=== PATIENT | female | born 1930 | race Caucasian/White ===

== ENCOUNTER 2017-06-18 08:13 | Day surgery (SDC) | payer MEDICARE, OTHER ==
[~2017-06-18 08:13] MED LIST: DIPHENHYDRAMINE HCL 50 MG/ML VIAL ONE; EPINEPHRINE INJ 1 MG/10 ML DISP.SYRIN ONE; FLUMAZENIL INJ 0.5 MG/5 ML VIAL ONE; GLUCAGON,HUMAN RECOMB 1 MG INJ ONE; NALOXONE HCL INJ/PF 0.4 MG/1 ML SDV ONE; ONDANSETRON HCL INJ/PF 4 MG/2 ML SDV ONE
[2017-06-18] MEDS: MIDAZOLAM 2 MG/2 ML INJ ONE ×2 (08:44→08:46)
[2017-06-18] MEDS: FENTANYL CITRATE INJ/PF 100 MCG/2 ML AMPUL ONE ×2 (08:48→08:50)
--- NOTE | 2017-06-18 08:57 | Operative Report ---
Operative Report DATE OF SURGERY: 06/18/17 Operative Report: The risks benefits and alternatives of the procedure explained to the patient in detail and informed consent is obtained .A GIF Olympus video scope was inserted into the patient's mouth and hypopharynx, the esophagus is identified intubated and insufflated, the scope was then advanced through the esophagus stomach and duodenum, retroflexion maneuver is done, the esophagus stomach and first and second portions of the duodenum examined PREOPERATIVE DIAGNOSIS: Dyspepsia, evaluate for varices. POSTOPERATIVE DIAGNOSIS: Absence of esophageal varices. Hiatal hernia. Gastritis status post biopsy rule out H pylori OPERATION: EGD with biopsy SURGEON: HENRY WILKERSON ANESTHESIA: Moderate Sedation - 2 mg of Versed, 25 mcg of fentanyl. Conscious sedation monitoring time 30 minutes. TISSUE REMOVED OR ALTERED: Shallow gastric mucosal specimen obtained COMPLICATIONS: None. ESTIMATED BLOOD LOSS: None. INTRAOPERATIVE FINDINGS: As described above. PROCEDURE: Patient tolerated the procedure well. No immediate postprocedure complications are noted. Patient discharged in good condition. Discharge date 06/18/2017. Discharge diet: Regular. Discharge activity: Regular. 2-3 week follow-up to discuss findings. Patient is instructed to call the office or proceed to the emergency room should there be any further problems or questions. We will await pathology.
[2017-06-18 10:11] VITALS: BP 114/73
== END 2017-06-18 10:00 | disposition home or self-care (01) ==
LOC: END 08:13
PROVIDERS: ATTEND Internal Medicine Gastroenterology
PROC: 0DB68ZX Excision of Stomach, Via Natural or Artificial Opening Endoscopic, Diagnostic (ICD-10-PCS; principal; 2017-06-18 08:30)
DX: K74.60 Unspecified cirrhosis of liver (principal); K29.70 Gastritis, unspecified, without bleeding; K44.9 Diaphragmatic hernia without obstruction or gangrene; I10 Essential (primary) hypertension; M19.90 Unspecified osteoarthritis, unspecified site; Z79.899 Other long term (current) drug therapy; Z79.51 Long term (current) use of inhaled steroids; Z09 Encounter for follow-up examination after completed treatment for conditions other than malignant neoplasm; Z87.19 Personal history of other diseases of the digestive system; Z85.828 Personal history of other malignant neoplasm of skin
CPT/HCPCS: 43239; 88342 ×2; 88305 ×2; J2250; J3010; J0171; J1200; J1610; J2310; J2405; J3490

== ENCOUNTER 2017-07-17 09:06 | Day surgery (SDC) | payer MEDICARE ==
[2017-07-17] MEDS: MIDAZOLAM 2 MG/2 ML INJ ONE ×5 (09:39→10:08)
[2017-07-17] MEDS: FENTANYL CITRATE INJ/PF 100 MCG/2 ML AMPUL ONE ×4 (09:41→10:00)
--- NOTE | 2017-07-17 10:22 | Operative Report ---
Operative Report DATE OF SURGERY: 07/17/17 Operative Report: The risks, benefits and alternatives of the procedure including risks of bleeding, perforation requiring surgery are explained to the patient in detail and informed consent is obtained. Patient was taken back to the endoscopy suite and placed in the left, lateral decubital position. Timeout was called. Conscious sedation medications are provided. A rectal examination is done which did not reveal any masses, tears or fissures. An Olympus videoscope was inserted into the patient's rectum. The patient has a very tortuous colon. Care was taken to advance the scope around the sigmoid with application of abdominal pressure as well as turning the patient to the supine position to obtain better luminal and circumferential views of the colon in this area. Once the area was bypassed the scope was advanced in a fight usual fashion all the way to the cecum the cecum was identified by the usual anatomical landmarks including the ileocecal valve as well as the appendiceal office and photodocumentation was obtained. The scope was then sequentially pulled back via the various segments of the colon including the ascending colon, hepatic flexure, transverse colon, splenic flexure, descending colon finding to the rectosigmoid portions of the colon. The cecum was reached by 70 cm. Retroflexion is obtained. PREOPERATIVE DIAGNOSIS: Constipation, change of bowel habits. Blood in stool POSTOPERATIVE DIAGNOSIS: Random areas of colitis status post biopsy. Diverticulosis. Internal hemorrhoids OPERATION: Colonoscopy completed to the cecum with biopsy SURGEON: HENRY WILKERSON ANESTHESIA: Moderate Sedation - 6 mg of Versed, 75 mcg of fentanyl. Conscious sedation monitoring time 30 minutes. TISSUE REMOVED OR ALTERED: As noted above. COMPLICATIONS: None. ESTIMATED BLOOD LOSS: None. INTRAOPERATIVE FINDINGS: As noted above. PROCEDURE: Patient tolerated procedure well. She is passing flatus postprocedure. No immediate postprocedure complications are noted. Vital signs remained stable throughout the procedure. She is discharged back to recovery in good condition Discharge date 07/17/2017. Discharge diet: Regular. Discharge activity: Regular. 2-3 week follow-up to discuss findings. Patient is instructed to call the office or proceed to the emergency room should there be any further problems or questions. We will wait on pathology.
[2017-07-17 12:35] VITALS: BP 134/73
== END 2017-07-17 11:50 | disposition home or self-care (01) ==
LOC: END 09:06
PROVIDERS: ATTEND Internal Medicine Gastroenterology
PROC: 0DBF8ZX Excision of Right Large Intestine, Via Natural or Artificial Opening Endoscopic, Diagnostic (ICD-10-PCS; principal; 2017-07-17 09:30)
DX: K57.30 Diverticulosis of large intestine without perforation or abscess without bleeding (principal); K92.1 Melena; K64.8 Other hemorrhoids; K52.9 Noninfective gastroenteritis and colitis, unspecified; I10 Essential (primary) hypertension; M81.0 Age-related osteoporosis without current pathological fracture; M19.90 Unspecified osteoarthritis, unspecified site; Z85.828 Personal history of other malignant neoplasm of skin; Z79.51 Long term (current) use of inhaled steroids; Z79.899 Other long term (current) drug therapy
CPT/HCPCS: 45380; 88305 ×2; J2250; J3010; J0171; J1200; J1610; J2310; J2405; J3490

== ENCOUNTER 2017-09-13 18:03 | Inpatient (IN) | payer MEDICARE ==
[2017-09-13] MEDS ORDERED: NORMAL SALINE 1000 ML 1,000 ML IV ONE ×2 (18:30→21:30)
[2017-09-13] MEDS ORDERED: CEFTRIAXONE 1 GM/D5W RTU 1 GM/50 ML RTUPB IV ONE (19:03)
[2017-09-13] MEDS ORDERED: METRONIDAZOLE 500 MG/NS RTU 100 ML IV ONE (19:04)
--- NOTE | 2017-09-13 19:04 | ER Document Report ---
ED General - General Chief Complaint: Loose Stools Stated Complaint: FEVER Time Seen by Provider: 09/13/17 18:29 Notes: Patient is an 87-year-old female with a past medical history of hypertension who presents with 2 days of diarrhea. The patient was found to have a fever by EMS but notes that she had not had a fever prior to that per her knowledge. She states that she has had continuous watery diarrhea for the past 2 days. Nothing seems to improve or worsen that symptom. She has not had any vomiting and denies any localized abdominal pain. She does note a generalized mild, constant, cramping abdominal pain. This has been unchanged since onset. No chest pain, shortness of breath, headache or neck pain. No known sick contacts. No history of similar symptoms in the past. She has not seen her primary care doctor regarding today's concerns. TRAVEL OUTSIDE OF THE [place] IN LAST 30 DAYS: No - Related Data Allergies/Adverse Reactions: No Known Allergies Allergy (Verified 07/15/17 14:32) Past Medical History - General Information source: Patient - Social History Smoking Status: Never Smoker Frequency of alcohol use: None Drug Abuse: None Lives with: Family Family History: Reviewed & Not Pertinent Patient has suicidal ideation: No Patient has homicidal ideation: No - Past Medical History Cardiac Medical History: Reports: Hx Hypertension Denies: Hx Coronary Artery Disease, Hx Heart Attack Pulmonary Medical History: Denies: Hx Asthma, Hx Bronchitis, Hx COPD, Hx Pneumonia Neurological Medical History: Denies: Hx Cerebrovascular Accident, Hx Seizures Renal/ Medical History: Denies: Hx Peritoneal Dialysis Musculoskeltal Medical History: Reports Hx Arthritis Past Surgical History: Reports: Hx Hysterectomy - Immunizations Hx Diphtheria, Pertussis, Tetanus Vaccination: No Hx Pneumococcal Vaccination: 09/09/14 Review of Systems - Review of Systems Notes: Constitutional: Positive for fever. HENT: Negative for sore throat. Eyes: Negative for visual changes. Cardiovascular: Negative for chest pain. Respiratory: Negative for shortness of breath. Gastrointestinal: Positive for abdominal pain and diarrhea Genitourinary: Negative for dysuria. Musculoskeletal: Negative for back pain. Skin: Negative for rash. Neurological: Negative for headaches, weakness or numbness. 10 point ROS negative except as marked above and in HPI. Physical Exam - Vital signs Vitals: Resp 21 H 09/13/17 19:55 Interpretation: Tachycardic, Febrile Notes: PHYSICAL EXAMINATION: GENERAL: Well-appearing, well-nourished and in no acute distress. HEAD: Atraumatic, normocephalic. EYES: Pupils equal round and reactive to light, extraocular movements intact, sclera anicteric, conjunctiva are normal. ENT: nares patent, oropharynx clear without exudates. Moderately dry mucous membranes. NECK: Normal range of motion, supple without lymphadenopathy LUNGS: Breath sounds clear to auscultation bilaterally and equal. No wheezes rales or rhonchi. HEART: Regular rate and rhythm without murmurs ABDOMEN: Soft, generalized abdominal tenderness, most focal to the left lower quadrant. No rebound or guarding. EXTREMITIES: Normal range of motion, no pitting or edema. No cyanosis. NEUROLOGICAL: No focal neurological deficits. Moves all extremities spontaneously and on command. PSYCH: Normal mood, normal affect. SKIN: Warm, Dry, normal turgor, no rashes or lesions noted. Course - Re-evaluation Re-evalutation: 09/13/17 19:02 Patient presents with 2 days of persistent diarrhea and a fever recorded by EMS to 104.6. Patient is overall nontoxic in appearance but does have focal left lower and suprapubic abdominal pain on palpation. She also appears clinically dehydrated. Initial vitals showed tachycardia and fever without hypotension. Patient denies any respiratory symptoms to suggest acute influenza, pneumonia, or a viral upper respiratory pathology. I am quite concerned based on her presentation for the possibility of an acute diverticulitis versus a localized colitis. Will begin obtaining broad laboratories including sepsis workup, CT abdomen pelvis with IV contrast, provide IV hydration, and begin empiric IV antibiotics. 09/13/17 21:29 CT does show acute cholecystitis, an unusual presentation given history and exam but given patient's age, her ability to localize pain is compromised. Will consult with , surgery on-call. - Vital Signs Vital signs: Temp Pulse Resp BP Pulse Ox 98.5 F 21 H 128/67 H 97 09/13/17 20:15 09/14/17 00:00 09/13/17 23:01 09/14/17 00:00 - Laboratory Result Diagrams: 09/13/17 19:16 09/13/17 19:16 Laboratory results interpreted by me: 09/13/17 09/13/17 09/13/17 19:16 19:16 19:16 WBC 3.1 L Hgb 11.4 L Hct 33.9 L MCV 77 L MCH 25.9 L RDW 17.8 H Plt Count 60 L VBG pH VBG pCO2 Sodium 136.9 L Carbon Dioxide 21 L Est GFR (Non-Af Amer) 59 L Glucose 170 H Lactic Acid 3.3 H Total Protein 6.0 L 09/13/17 19:16 WBC Hgb Hct MCV MCH RDW Plt Count VBG pH 7.47 H VBG pCO2 29.1 L Sodium Carbon Dioxide Est GFR (Non-Af Amer) Glucose Lactic Acid Total Protein - Diagnostic Test Radiology reviewed: Reports reviewed Discharge - Discharge Clinical Impression: Acute cholecystitis Sepsis Qualifiers: Sepsis type: sepsis due to unspecified organism Qualified Code(s): A41.9 - Sepsis, unspecified organism Condition: Fair Disposition: ADMITTED INPATIENT Admitting Provider: Surgicalist - [facility] Unit Admitted: Surgical Floor
[2017-09-13 19:54] LABS: ABSOLUTE LYMPHOCYTES (AUTO) 0.5 10^3/uL (0.5-4.7); ABSOLUTE MONOCYTES (AUTO) 0.4 10^3/uL (0.1-1.4); ABSOLUTE NEUT (AUTO) 2.2 10^3/uL (1.7-8.2); BASOPHILS % (AUTO) 0.4 % (0-2); EOSINOPHILS % (AUTO) 0.2 % (0-6); HEMATOCRIT 33.9 % (36.0-47.0); HEMOGLOBIN 11.4 g/dL (12.0-15.5); LYMPHOCYTES % (AUTO) 15.3 % (13-45); MEAN CORPUSCULAR HEMOGLOBIN 25.9 pg (27.0-33.4); MEAN CORPUSCULAR HGB CONC 33.6 g/dL (32.0-36.0); MEAN CORPUSCULAR VOLUME 77 fl (80-97); MONOCYTES % (AUTO) 12.5 % (3-13); RED BLOOD COUNT 4.39 10^6/uL (3.72-5.28); RED CELL DISTRIBUTION WIDTH 17.8 % (11.5-14.0); SEGMENTED NEUTROPHILS % (AUTO) 71.6 % (42-78); TOTAL CELLS COUNTED % (AUTO) 100 %; WHITE BLOOD COUNT 3.1 10^3/uL (4.0-10.5)
[2017-09-13 19:57] LABS: VENOUS BLOOD BASE EXCESS -1.8 mmol/L; VENOUS BLOOD HCO3 20.7 mmol/L (20-32); VENOUS BLOOD PCO2 29.1 mmHg (35-63); VENOUS BLOOD PH 7.47 (7.30-7.42)
[2017-09-13 20:13] LABS: PLATELET COUNT 60 10^3/uL (150-450)
[2017-09-13 20:16] LABS: ALANINE AMINOTRANSFERASE 31 U/L (9-52); ALBUMIN 3.6 g/dL (3.5-5.0); ALKALINE PHOSPHATASE 85 U/L (38-126); ANION GAP 11 (5-19); ASPARTATE AMINO TRANSFERASE 29 U/L (14-36); BILIRUBIN,DIRECT 0.3 mg/dL (0.0-0.4); BILIRUBIN,TOTAL 0.9 mg/dL (0.2-1.3); BLOOD UREA NITROGEN 17 mg/dL (7-20); CALCIUM 9.3 mg/dL (8.4-10.2); CARBON DIOXIDE 21 mmol/L (22-30); CHLORIDE 105 mmol/L (98-107); GLUCOSE 170 mg/dL (75-110); LIPASE 81.1 U/L (23-300); POTASSIUM 3.7 mmol/L (3.6-5.0); SODIUM 136.9 mmol/L (137-145)
--- NOTE | 2017-09-13 21:14 | RADIOLOGY REPORT (SQ) ---
EXAM DESCRIPTION: CT ABD/PELVIS WITH IV ONLY COMPLETED DATE/TIME: 09/13/2017 8:55 pm REASON FOR STUDY: llq pain, fever COMPARISON: None. TECHNIQUE: CT scan of the abdomen and pelvis performed using helical scanning technique with dynamic intravenous contrast injection. No oral contrast. Images reviewed with lung, soft tissue, and bone windows. Reconstructed coronal and sagittal MPR images reviewed. Delayed images for evaluation of the urinary system also acquired. All images stored on PACS. All CT scanners at this facility use dose modulation, iterative reconstruction, and/or weight based d osing when appropriate to reduce radiation dose to as low as reasonably achievable (ALARA). [facility]: Dose Right [facility]: CareDose [facility]: Dose Right [facility]: Teradose 4D [facility]: [employer] CONTRAST TYPE AND DOSE: contrast/concentration: Isovue 370.00 mg/ml; Total Contrast Delivered: 50.0 ml; Total Saline Delivered: 64.1 ml RENAL FUNCTION: GFR > 60. RADIATION DOSE: CT Rad equipment meets quality standard of care and radiation dose reduction techniq ues were employed. CTDIvol: 5.5 - 7.4 mGy. DLP: 665 mGy-cm.. LIMITATIONS: None. FINDINGS: LOWER CHEST: No significant findings. No nodules or infiltrates. LIVER: Normal size. No masses. No dilated ducts. Minimal perihepatic fluid. SPLEEN: Normal size. No focal lesions. Minimal perisplenic fluid. PANCREAS: No masses. No significant calcifications. No adjacent inflammation or peripancreatic fluid collections. Pancreatic duct not dilated. GALLBLADDER: Gallstones. Pericholecystic fluid. ADRENAL GLANDS: No significant masses or asymmetry. RIGHT KIDNEY AND URETER: No solid masses. No significant calcifications. No hydronephrosis or hyd roureter. LEFT KIDNEY AND URETER: No solid masses. No significant calcifications. No hydronephrosis or hydr oureter. AORTA AND VESSELS: No aneurysm. No dissection. Renal arteries, SMA, celiac without stenosis. RETROPERITONEUM: No retroperitoneal adenopathy, hemorrhage or masses. BOWEL AND PERITONEAL CAVITY: No masses or inflammatory changes. No free fluid or peritoneal masses. APPENDIX: Surgically absent. PELVIS: Minimal free fluid. ABDOMINAL WALL: Small periumbilical hernia contains omentum. BONES: No significant or acute findings. OTHER: No other significant finding. IMPRESSION: Cholelithiasis and cholecystitis with pericholecystic fluid. Minimal fluid around the liver spleen ANd in the pelvis. TECHNICAL DOCUMENTATION: JOB ID: [id number] Quality ID # [id number]: Final reports with documentation of one or more dose reduction techniques (e.g., Au tomated exposure control, adjustment of the mA and/or kV according to patient size, use of iterative reconstruction technique) 2010 [employer]- All Rights Reserved
--- NOTE | 2017-09-13 21:57 | RADIOLOGY REPORT (SQ) ---
EXAM DESCRIPTION: CHEST SINGLE VIEW COMPLETED DATE/TIME: 09/13/2017 9:50 pm REASON FOR STUDY: fever COMPARISON: None. EXAM PARAMETERS: NUMBER OF VIEWS: One view. TECHNIQUE: Single frontal radiographic view of the chest acquired. RADIATION DOSE: NA LIMITATIONS: None. FINDINGS: LUNGS AND PLEURA: No opacities, masses or pneumothorax. No pleural effusion. MEDIASTINUM AND HILAR STRUCTURES: No masses. Contour normal. HEART AND VASCULAR STRUCTURES: Heart normal in size. Normal vasculature. BONES: No acute findings. HARDWARE: None in the chest. OTHER: No other significant finding. IMPRESSION: NO ACUTE RADIOGRAPHIC FINDING IN THE CHEST. TECHNICAL DOCUMENTATION: JOB ID: [id number] [employer]- All Rights Reserved
[2017-09-13] MEDS ORDERED: DEXTROSE 40% GEL 15 GM TUBE PO PRN ×2 (22:58)
[2017-09-13] MEDS ORDERED: DEXTROSE 50%-WATER 25 GM/50 ML DISP.SYRIN IV PRN ×2 (22:58)
[2017-09-13] MEDS ORDERED: GLUCAGON,HUMAN RECOMB 1 MG INJ SUBCUT PRN (22:58)
[2017-09-13] MEDS ORDERED: ONDANSETRON HCL INJ/PF 4 MG/2 ML SDV IV PRN (22:58)
--- NOTE | 2017-09-13 22:58 | PDOC H&P ---
History of Present Illness Admission Date/PCP: 09/13/17 22:13 Patient complains of: diarrhea History of Present Illness: VALENTINA PARIS is a 87 year old female c/o diarrhea past 2 days. 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 Stopped drinking about a year ago. Noted Acute cholecystitis with cholelitiasis on CT scan. Noted tenderness to RUQ ,RLQ and suprapubic area and a CT scan of abdomen was ordered by Dr Adler trying to R/O diverticulitis. Past Medical History Cardiac Medical History: Reports: Hypertension Denies: Coronary Artery Disease, Myocardial Infarction Pulmonary Medical History: Denies: Asthma, Bronchitis, Chronic Obstructive Pulmonary Disease (COPD), Pneumonia Neurological Medical History: Denies: Seizures Musculoskeltal Medical History: Reports: Arthritis Hematology: Denies: Anemia Past Surgical History Past Surgical History: Reports: Hysterectomy Social History Smoking Status: Unknown if Ever Smoked Frequency of Alcohol Use: Heavy - until stopped last year. Known to have Cirrhosis of the liver. Being followed by authors motivational Dr Wu for this. Also known to have low platelet count. Family History Parental Family History Reviewed: Yes - mother age 94 due to old age and father of VT age 69. Children Family History Reviewed: No Sibling(s) Family History Reviewed.: No Medication/Allergy Home Medications: Calcium Carbonate [Calcium] 600 mg PO DAILY 06/17/17 Cyclobenzaprine HCl 5 mg PO BID 06/17/17 Furosemide [Lasix 20 mg Tablet] 20 mg PO QAM 06/17/17 Melatonin 5 mg PO QHS 06/17/17 Meloxicam 7.5 mg PO DAILY 06/17/17 Metoprolol Tartrate [Lopressor] 50 mg PO BID 06/17/17 Oxybutynin Chloride 5 mg PO TID 06/17/17 Spironolactone 50 mg PO DAILY 06/17/17 Alendronate Sodium 10 mg PO DAILY 07/17/17 Amoxicillin 250 mg PO BID 07/17/17 Losartan Potassium [Cozaar 50 mg Tablet] 50 mg PO DAILY 07/17/17 Omeprazole 20 mg PO DAILY 07/17/17 Allergies/Adverse Reactions: No Known Allergies Allergy (Verified 07/15/17 14:32) Review of Systems Constitutional: PRESENT: chills, fever(s) Eyes: PRESENT: other - no visual/hearing problems Nose, Mouth, and Throat: PRESENT: other - no sore throat Cardiovascular: PRESENT: other - no chest pains Respiratory: PRESENT: other - no cough Gastrointestinal: PRESENT: abdominal pain, diarrhea Genitourinary: PRESENT: other - no dysuria Musculoskeletal: PRESENT: other - no joint swelling Integumentary: PRESENT: other - no rash Neurological: PRESENT: other - no seizures Psychiatric: PRESENT: other - no anxiety Endocrine: PRESENT: other - no polyuria Hematologic/Lymphatic: PRESENT: other - no eassy bruisability Physical Exam Vital Signs: Temp Pulse Resp BP Pulse Ox 98.5 F 17 101/61 95 09/13/17 20:15 09/13/17 20:14 09/13/17 20:15 09/13/17 20:14 General appearance: PRESENT: mild distress Head exam: PRESENT: atraumatic Eye exam: PRESENT: conjunctiva pink Mouth exam: PRESENT: moist, tongue midline Neck exam: PRESENT: full ROM Respiratory exam: PRESENT: clear to auscultation ira Cardiovascular exam: PRESENT: RRR Pulses: PRESENT: normal radial pulses Vascular exam: PRESENT: normal capillary refill GI/Abdominal exam: PRESENT: soft, tenderness - RUQ,RLQ,LLQ and suprapubic areas Rectal exam: PRESENT: deferred Extremities exam: PRESENT: full ROM Musculoskeletal exam: PRESENT: ambulatory Neurological exam: PRESENT: alert, oriented to person, oriented to place, oriented to time, oriented to situation Psychiatric exam: PRESENT: appropriate affect Skin exam: PRESENT: normal color, warm Results Impressions: Abdomen/Pelvis CT 09/13/17 19:02 IMPRESSION: Cholelithiasis and cholecystitis with pericholecystic fluid. Minimal fluid around the liver spleen ANd in the pelvis. Chest X-Ray 09/13/17 21:34 IMPRESSION: NO ACUTE RADIOGRAPHIC FINDING IN THE CHEST. Assessment & Plan - Diagnosis (1) Cholelithiasis and acute cholecystitis without obstruction Is this a current diagnosis for this admission?: Yes - Time Time Spent: 30 to 50 Minutes - Inpatient Certification Medical Necessity: Need For IV Fluids, Need For Continuous Telemetry Monitoring , Need for IV Antibiotics, Need for Surgery - Plan Summary Plan Summary: IV antibiotics Stool for C Diff Hydrate For possible lap reyes in am
[2017-09-13] MEDS ORDERED: PIPERACILLIN/TAZOBACTAM 3.375 GM VIAL IV PRN (23:22)
[2017-09-14] MEDS ORDERED: PIPERACILLIN/TAZOBACTAM 3.375 GM VIAL IV SCH
[2017-09-14] MEDS ORDERED: PIPERACILLIN/TAZOBACTAM 3.375 GM VIAL IV ONE (03:32)
[2017-09-14] MEDS: NORMAL SALINE 1000 ML 1,000 ML IV PRN ×3 (04:07→23:45)
[2017-09-14] MEDS: PIPERACILLIN SODIUM/TAZOBACTAM 3.375 GM in NORMAL SALINE 100 ML IV SCH ×5 (04:09→23:45)
[2017-09-14 07:39] LABS: INTERNATIONAL RATION (INR) 1.36; PROTHROMBIN TIME 17.6 SEC (11.4-15.4)
[2017-09-14 07:45] LABS: ABSOLUTE LYMPHOCYTES (AUTO) 0.7 10^3/uL (0.5-4.7); ABSOLUTE MONOCYTES (AUTO) 0.4 10^3/uL (0.1-1.4); ABSOLUTE NEUT (AUTO) 1.6 10^3/uL (1.7-8.2); BASOPHILS % (AUTO) 0.5 % (0-2); EOSINOPHILS % (AUTO) 0.2 % (0-6); HEMATOCRIT 29.3 % (36.0-47.0); HEMOGLOBIN 10.1 g/dL (12.0-15.5); LYMPHOCYTES % (AUTO) 24.4 % (13-45); MEAN CORPUSCULAR HEMOGLOBIN 26.2 pg (27.0-33.4); MEAN CORPUSCULAR HGB CONC 34.3 g/dL (32.0-36.0); MEAN CORPUSCULAR VOLUME 76 fl (80-97); MONOCYTES % (AUTO) 16.6 % (3-13); RED BLOOD COUNT 3.84 10^6/uL (3.72-5.28); RED CELL DISTRIBUTION WIDTH 17.3 % (11.5-14.0); SEGMENTED NEUTROPHILS % (AUTO) 58.3 % (42-78); TOTAL CELLS COUNTED % (AUTO) 100 %; WHITE BLOOD COUNT 2.7 10^3/uL (4.0-10.5)
[2017-09-14 07:53] LABS: ALANINE AMINOTRANSFERASE 32 U/L (9-52); ALBUMIN 3.2 g/dL (3.5-5.0); ALKALINE PHOSPHATASE 77 U/L (38-126); ANION GAP 9 (5-19); ASPARTATE AMINO TRANSFERASE 25 U/L (14-36); BILIRUBIN,DIRECT 0.3 mg/dL (0.0-0.4); BILIRUBIN,TOTAL 0.7 mg/dL (0.2-1.3); BLOOD UREA NITROGEN 13 mg/dL (7-20); CALCIUM 8.3 mg/dL (8.4-10.2); CARBON DIOXIDE 19 mmol/L (22-30); CHLORIDE 111 mmol/L (98-107); GLUCOSE 100 mg/dL (75-110); POTASSIUM 3.6 mmol/L (3.6-5.0); SODIUM 138.5 mmol/L (137-145); TOTAL PROTEIN 5.6 g/dL (6.3-8.2)
[2017-09-14 08:23] LABS: PLATELET COUNT 44 10^3/uL (150-450)
[2017-09-14 08:25] LABS: APPEARANCE,URINE CLEAR; BILIRUBIN,URINE NEGATIVE (NEGATIVE); COLOR,URINE YELLOW; GLUCOSE, URINE NEGATIVE (NEGATIVE); KETONES,URINE TRACE mg/dL (NEGATIVE); LEUKOCYTE ESTERASE,URINE NEGATIVE (NEGATIVE); NITRITE,URINE NEGATIVE (NEGATIVE); PROTEIN,URINE NEGATIVE (NEGATIVE); URINE SPECIFIC GRAVITY 1.047; UROBILINOGEN,URINE NEGATIVE mg/dL (<2.0)
--- NOTE | 2017-09-14 11:14 | PDOC CONSULTATION ---
Consultation Consult Date: 09/14/17 Attending physician:: CRICKET LAGUNAS Consult reason:: Hypertension and other medical problems History of Present Illness Admission Date/PCP: 09/13/17 22:13 History of Present Illness: VALENTINA PARIS is a 87 year old female who presented with a 2 day history of abdominal pain worse in the lower quadrants as well as nausea. She presented via EMS was found to have a temperature of 104. Given her abdomen findings a CT scan was done and showed some pericolic fluid. She was then admitted to the surgery service for possible cholecystectomy. The patient however has minimal right upper quadrant pain. Her alkaline phosphatase and transaminases are all normal. She does also have a history of hypertension and reports having a history of cirrhosis secondary to alcohol use but has not drank anything for the last 6 months. She currently denies any problems except for some left lower quadrant pain. Past Medical History Cardiac Medical History: Reports: Hypertension Denies: Coronary Artery Disease, Myocardial Infarction Pulmonary Medical History: Denies: Asthma, Bronchitis, Chronic Obstructive Pulmonary Disease (COPD), Pneumonia Neurological Medical History: Denies: Seizures Endocrine Medical History: Reports: None Renal/ Medical History: Reports: None Malignancy Medical History: Reports: Other - History of melanoma GI Medical History: Reports: Other - Cirrhosis by her history. Musculoskeltal Medical History: Reports: Arthritis Skin Medical History: Reports: Other - History of melanoma Traumatic Medical History: Reports: None Hematology: Denies: Anemia Infectious Medical History: Reports: None Past Surgical History Past Surgical History: Reports: Hysterectomy Social History Information Source: Patient Lives with: Family Smoking Status: Never Smoker Frequency of Alcohol Use: Heavy - until stopped last year. Known to have Cirrhosis of the liver. Being followed by fagoter Dr Wu for this. Also known to have low platelet count. Hx Recreational Drug Use: No Drugs: None Hx Prescription Drug Abuse: No Family History Family History: Mother at age 94 and had no chronic health problems. Father at age 69 from coronary artery disease. Parental Family History Reviewed: Yes Children Family History Reviewed: No Sibling(s) Family History Reviewed.: No Medication/Allergy Allergies/Adverse Reactions: No Known Allergies Allergy (Verified 07/15/17 14:32) Review of Systems Constitutional: PRESENT: chills, fever(s). ABSENT: headache(s), weight gain, weight loss Eyes: ABSENT: visual disturbances Ears: ABSENT: hearing changes Cardiovascular: ABSENT: chest pain, dyspnea on exertion, edema, orthropnea, palpitations Respiratory: ABSENT: cough, hemoptysis Gastrointestinal: PRESENT: as per HPI, abdominal pain, diarrhea, nausea. ABSENT : hematemesis, hematochezia, melena, vomiting Genitourinary: ABSENT: dysuria, hematuria Musculoskeletal: ABSENT: joint swelling Integumentary: ABSENT: rash, wounds Neurological: ABSENT: abnormal gait, abnormal speech, confusion, dizziness, focal weakness, syncope Psychiatric: ABSENT: anxiety, depression Endocrine: ABSENT: cold intolerance, heat intolerance, polydipsia, polyuria Hematologic/Lymphatic: ABSENT: easy bleeding, easy bruising Physical Exam Vital Signs: Temp Pulse Resp BP Pulse Ox 100.1 F 92 12 111/58 L 97 09/14/17 09:03 09/14/17 09:03 09/14/17 09:03 09/14/17 09:03 09/14/17 09:03 Intake & Output 09/13/17 09/14/17 09/15/17 06:59 06:59 06:59 Intake Total 0 Balance 0 Weight 62.9 kg General appearance: PRESENT: no acute distress, well-developed, well-nourished Head exam: PRESENT: atraumatic, normocephalic Eye exam: PRESENT: conjunctiva pink, EOMI, PERRLA. ABSENT: scleral icterus Mouth exam: PRESENT: moist, tongue midline Neck exam: ABSENT: carotid bruit, JVD, lymphadenopathy, thyromegaly Respiratory exam: PRESENT: clear to auscultation ira. ABSENT: rales, rhonchi, wheezes Cardiovascular exam: PRESENT: RRR. ABSENT: diastolic murmur, rubs, systolic murmur Pulses: PRESENT: normal dorsalis pedis pul Vascular exam: PRESENT: normal capillary refill GI/Abdominal exam: PRESENT: normal bowel sounds, soft, tenderness - Tenderness worse in the left lower quadrant.. ABSENT: distended, guarding, mass, organolmegaly, rebound Extremities exam: ABSENT: calf tenderness, clubbing, pedal edema Neurological exam: PRESENT: alert, awake, oriented to person, oriented to place , oriented to time, oriented to situation, CN II-XII grossly intact. ABSENT: motor sensory deficit Psychiatric exam: PRESENT: appropriate affect Skin exam: PRESENT: dry, intact, warm. ABSENT: cyanosis, rash Results Laboratory Results: 09/14/17 07:12 09/14/17 07:12 09/13/17 09/14/17 09/14/17 23:15 00:00 07:12 WBC 2.7 L RBC 3.84 Hgb 10.1 L Hct 29.3 L MCV 76 L MCH 26.2 L MCHC 34.3 RDW 17.3 H Plt Count 44 L Seg Neutrophils % 58.3 Lymphocytes % 24.4 Monocytes % 16.6 H Eosinophils % 0.2 Basophils % 0.5 Absolute Neutrophils 1.6 L Absolute Lymphocytes 0.7 Absolute Monocytes 0.4 Absolute Eosinophils 0.0 Absolute Basophils 0.0 Sodium Potassium Chloride Carbon Dioxide Anion Gap BUN Creatinine Est GFR ( Amer) Est GFR (Non-Af Amer) Glucose Lactic Acid 2.0 Calcium Total Bilirubin AST ALT Alkaline Phosphatase Total Protein Albumin Urine Color Urine Appearance Urine pH Ur Specific [place] Urine Protein Urine Glucose (UA) Urine Ketones Urine Blood Urine Nitrite Ur Leukocyte Esterase Urine WBC (Auto) Urine RBC (Auto) Blood Type A POSITIVE Antibody Screen NEGATIVE 09/14/17 09/14/17 07:12 07:45 WBC RBC Hgb Hct MCV MCH MCHC RDW Plt Count Seg Neutrophils % Lymphocytes % Monocytes % Eosinophils % Basophils % Absolute Neutrophils Absolute Lymphocytes Absolute Monocytes Absolute Eosinophils Absolute Basophils Sodium 138.5 Potassium 3.6 Chloride 111 H Carbon Dioxide 19 L Anion Gap 9 BUN 13 Creatinine 0.75 Est GFR ( Amer) > 60 Est GFR (Non-Af Amer) > 60 Glucose 100 Lactic Acid Calcium 8.3 L Total Bilirubin 0.7 AST 25 ALT 32 Alkaline Phosphatase 77 Total Protein 5.6 L Albumin 3.2 L Urine Color YELLOW Urine Appearance CLEAR Urine pH 5.0 Ur Specific [place] 1.047 Urine Protein NEGATIVE Urine Glucose (UA) NEGATIVE Urine Ketones TRACE H Urine Blood NEGATIVE Urine Nitrite NEGATIVE Ur Leukocyte Esterase NEGATIVE Urine WBC (Auto) 1 Urine RBC (Auto) 5 Blood Type Antibody Screen Impressions: Abdomen/Pelvis CT 09/13/17 19:02 IMPRESSION: Cholelithiasis and cholecystitis with pericholecystic fluid. Minimal fluid around the liver spleen ANd in the pelvis. Chest X-Ray 09/13/17 21:34 IMPRESSION: NO ACUTE RADIOGRAPHIC FINDING IN THE CHEST. Assessment & Plan - Diagnosis (1) Cholelithiasis and acute cholecystitis without obstruction Is this a current diagnosis for this admission?: Yes Plan: Patient had fever to 104 and has some abdominal pain and there was concern that this may represent acute cholecystitis. The patient however has minimal right upper quadrant pain and her alkaline phosphatase and transaminases are normal. It is unclear as to whether all of her abdominal pain and fevers related to the gallbladder or whether there is another cause. She does have a history of she was started on antibiotics empirically diverticulosis. Her pain is mostly in the left lower quadrant. For infection and will continue with those. At this time I think it is reasonable to treat with antibiotics and not proceed with surgery until it is clear exactly what the cause for her symptoms are. She did not have a surgical exam of the time of my examination (2) Hypertension Is this a current diagnosis for this admission?: Yes Plan: We will continue with her outpatient management once the son confirms what medications she normally takes. (3) Cirrhosis Is this a current diagnosis for this admission?: Yes Plan: Patient has a long history of alcohol abuse but has not drank for the last 6 months. Her coagulation studies are only slightly abnormal with an INR of 1.36. No evidence for any type of encephalopathy. (4) Diverticulosis Is this a current diagnosis for this admission?: Yes Plan: Patient does have a history diverticulosis and does have some left lower quadrant pain. She had a abdominal CT that showed no evidence for acute diverticulitis however antibiotics should cover that if she does have any diverticulitis. - Time Time Spent: 50 to 70 Minutes - Inpatient Certification Medical Necessity: Need for IV Antibiotics - Plan Summary Plan Summary: We will continue to follow along with you.
[2017-09-14 11:27] LABS: CREATINE KINASE MB < 0.22 ng/mL (<4.55); TROPONIN I < 0.012 ng/mL
--- NOTE | 2017-09-14 11:46 | EKG REPORT ---
SEVERITY:- ABNORMAL ECG - SINUS RHYTHM INCOMPLETE RIGHT BUNDLE BRANCH BLOCK LOW VOLTAGE THROUGHOUT : Confirmed by: Precious Grier 14-Sep-2017 11:46:12
--- NOTE | 2017-09-14 12:30 | PDOC PROGRESS REPORT ---
Subjective Progress Note for:: 09/14/17 Subjective:: Diarrhea which slowed down today. Denies abdominal pains but with LLQ tenderness. Mild RUQ tenderness Appreciate Dr Balderas's consult. Will hold off Cholecystectomy Reason For Visit: CHOLELITHISIS,ACUTE CHOLECYSTITIS,HYPERTENSION Physical Exam Vital Signs: Temp Pulse Resp BP Pulse Ox 100.1 F 92 12 111/58 L 97 09/14/17 09:03 09/14/17 09:03 09/14/17 09:03 09/14/17 09:03 09/14/17 09:03 Intake & Output 09/13/17 09/14/17 09/15/17 06:59 06:59 06:59 Intake Total 0 Balance 0 Weight 62.9 kg Exam: Abdomen is soft with tenderness primarily at the LLQ. Minimal RUQ tenderness. Results Laboratory Results: 09/14/17 07:12 09/14/17 07:12 09/13/17 09/14/17 09/14/17 23:15 00:00 07:12 WBC 2.7 L RBC 3.84 Hgb 10.1 L Hct 29.3 L MCV 76 L MCH 26.2 L MCHC 34.3 RDW 17.3 H Plt Count 44 L Seg Neutrophils % 58.3 Lymphocytes % 24.4 Monocytes % 16.6 H Eosinophils % 0.2 Basophils % 0.5 Absolute Neutrophils 1.6 L Absolute Lymphocytes 0.7 Absolute Monocytes 0.4 Absolute Eosinophils 0.0 Absolute Basophils 0.0 Sodium Potassium Chloride Carbon Dioxide Anion Gap BUN Creatinine Est GFR ( Amer) Est GFR (Non-Af Amer) Glucose Lactic Acid 2.0 Calcium Total Bilirubin AST ALT Alkaline Phosphatase Total Protein Albumin Urine Color Urine Appearance Urine pH Ur Specific [place] Urine Protein Urine Glucose (UA) Urine Ketones Urine Blood Urine Nitrite Ur Leukocyte Esterase Urine WBC (Auto) Urine RBC (Auto) Blood Type A POSITIVE Antibody Screen NEGATIVE 09/14/17 09/14/17 07:12 07:45 WBC RBC Hgb Hct MCV MCH MCHC RDW Plt Count Seg Neutrophils % Lymphocytes % Monocytes % Eosinophils % Basophils % Absolute Neutrophils Absolute Lymphocytes Absolute Monocytes Absolute Eosinophils Absolute Basophils Sodium 138.5 Potassium 3.6 Chloride 111 H Carbon Dioxide 19 L Anion Gap 9 BUN 13 Creatinine 0.75 Est GFR ( Amer) > 60 Est GFR (Non-Af Amer) > 60 Glucose 100 Lactic Acid Calcium 8.3 L Total Bilirubin 0.7 AST 25 ALT 32 Alkaline Phosphatase 77 Total Protein 5.6 L Albumin 3.2 L Urine Color YELLOW Urine Appearance CLEAR Urine pH 5.0 Ur Specific [place] 1.047 Urine Protein NEGATIVE Urine Glucose (UA) NEGATIVE Urine Ketones TRACE H Urine Blood NEGATIVE Urine Nitrite NEGATIVE Ur Leukocyte Esterase NEGATIVE Urine WBC (Auto) 1 Urine RBC (Auto) 5 Blood Type Antibody Screen 09/14/17 09/14/17 10:05 10:05 Creatine Kinase 41 CK-MB (CK-2) < 0.22 Troponin I < 0.012 Impressions: Abdomen/Pelvis CT 09/13/17 19:02 IMPRESSION: Cholelithiasis and cholecystitis with pericholecystic fluid. Minimal fluid around the liver spleen ANd in the pelvis. Chest X-Ray 09/13/17 21:34 IMPRESSION: NO ACUTE RADIOGRAPHIC FINDING IN THE CHEST. Assessment & Plan - Diagnosis (1) Cholelithiasis and acute cholecystitis without obstruction Is this a current diagnosis for this admission?: Yes - Time Time Spent with patient: 15-24 minutes - Inpatient Certification Medical Necessity: Need Close Monitoring Due to Risk of Patient Decompensation, Need For IV Fluids, Need for IV Antibiotics, Risk of Complication if Not Cared For in Hospital - Plan Summary Plan Summary: Hold off cholecystectomy. Continue IV antibiotics for possible diverticulitis Will transfer to Med service
[2017-09-14] MEDS: ACETAMINOPHEN 325 MG TABLET PO PRN (14:33)
[2017-09-14] MEDS ORDERED: METOPROLOL TARTRATE 25 MG TABLET PO ONE (21:00)
[2017-09-14] MEDS: MORPHINE SULFATE 10 MG/ML INJ IV PRN (23:41)
[2017-09-15] MEDS: LANSOPRAZOLE 15 MG TAB.RAP.DR PO SCH (05:08)
[2017-09-15] MEDS: PIPERACILLIN SODIUM/TAZOBACTAM 3.375 GM in NORMAL SALINE 100 ML IV SCH ×3 (05:09→17:53)
[2017-09-15] MEDS: NORMAL SALINE 1000 ML 1,000 ML IV PRN ×2 (07:54→15:54)
[2017-09-15 08:50] LABS: HEMATOCRIT 29.4 % (36.0-47.0); HEMOGLOBIN 9.9 g/dL (12.0-15.5); MEAN CORPUSCULAR HGB CONC 33.8 g/dL (32.0-36.0); MEAN CORPUSCULAR VOLUME 77 fl (80-97); RED BLOOD COUNT 3.82 10^6/uL (3.72-5.28)
[2017-09-15 08:59] LABS: ANION GAP 7 (5-19); BLOOD UREA NITROGEN 7 mg/dL (7-20); CALCIUM 7.5 mg/dL (8.4-10.2); CARBON DIOXIDE 21 mmol/L (22-30); CHLORIDE 113 mmol/L (98-107); GLUCOSE 81 mg/dL (75-110); POTASSIUM 3.1 mmol/L (3.6-5.0); SODIUM 140.9 mmol/L (137-145)
[2017-09-15] MEDS: SPIRONOLACTONE 25 MG TABLET PO SCH (09:10)
[2017-09-15] MEDS: METOPROLOL TARTRATE 25 MG TABLET PO SCH ×2 (09:11→21:54)
[2017-09-15 09:35] LABS: PLATELET COUNT 43 10^3/uL (150-450)
--- NOTE | 2017-09-15 09:58 | PDOC PROGRESS REPORT ---
Subjective Progress Note for:: 09/15/17 Subjective:: Diarrhea has stopped. No abdominal pains. Just mild tenderness LLQ Reason For Visit: CHOLELITHISIS,ACUTE CHOLECYSTITIS,HYPERTENSION Physical Exam Vital Signs: Temp Pulse Resp BP Pulse Ox 97.5 F 83 18 124/59 L 97 09/15/17 08:11 09/15/17 08:11 09/15/17 08:11 09/15/17 08:11 09/15/17 08:11 Intake & Output 09/14/17 09/15/17 09/16/17 06:59 06:59 06:59 Intake Total 0 3992 Output Total 2 Balance 0 3990 Weight 62.9 kg 51 kg Exam: Abdomen is soft. Just mild tenderness LLQ. Results Laboratory Results: 09/15/17 07:52 09/15/17 09/15/17 07:52 07:52 Seg Neutrophils % Not Reportable Lymphocytes % Not Reportable Monocytes % Not Reportable Eosinophils % Not Reportable Basophils % Not Reportable Absolute Neutrophils Not Reportable Absolute Lymphocytes Not Reportable Absolute Monocytes Not Reportable Absolute Eosinophils Not Reportable Absolute Basophils Not Reportable Sodium 140.9 Potassium 3.1 L Chloride 113 H Carbon Dioxide 21 L Anion Gap 7 BUN 7 Creatinine 0.63 Est GFR ( Amer) > 60 Est GFR (Non-Af Amer) > 60 Glucose 81 Calcium 7.5 L 09/14/17 09/14/17 10:05 10:05 Creatine Kinase 41 CK-MB (CK-2) < 0.22 Troponin I < 0.012 Impressions: Abdomen/Pelvis CT 09/13/17 19:02 IMPRESSION: Cholelithiasis and cholecystitis with pericholecystic fluid. Minimal fluid around the liver spleen ANd in the pelvis. Chest X-Ray 09/13/17 21:34 IMPRESSION: NO ACUTE RADIOGRAPHIC FINDING IN THE CHEST. Assessment & Plan - Diagnosis (1) Cholelithiasis and acute cholecystitis without obstruction Is this a current diagnosis for this admission?: Yes - Time Time Spent with patient: 15-24 minutes - Plan Summary Plan Summary: OK to increase diet and activity. Will follow if needed. Patient advised to eat low fat diet.
[2017-09-15 10:02] LABS: ABSOLUTE LYMPHOCYTES# (MANUAL) 0.4 10^3/uL (0.5-4.7); ABSOLUTE MONOCYTES # (MANUAL) 0.4 10^3/uL (0.1-1.4); ABSOLUTE NEUTROPHILS# (MANUAL) 0.8 10^3/uL (1.7-8.2); BAND NEUTROPHILS % (MANUAL) 4 % (3-5); BASOPHILS % (MANUAL) 0 % (0-2); EOSINOPHILS % (MANUAL) 0 % (0-6); LYMPHOCYTES % (MANUAL) 25 % (13-45); MONOCYTES % (MANUAL) 28 % (3-13); SEGMENTED NEUTROPHILS % (MAN) 43 % (42-78); TOTAL CELLS COUNTED 100
[2017-09-15 10:10] LABS: ANISOCYTOSIS 1+; BURR CELLS 2+; HELMET CELLS SLIGHT; OVALOCYTES 1+; POIKILOCYTOSIS 2+; SCHISTOCYTES 1+; TOXIC GRANULATION 1+
[2017-09-15 10:11] LABS: ACANTHOCYTES 1+; PLATELET COMMENT DECREASED; PLATELET GIANT PRESENT; PLATELET LARGE PRESENT; TEAR DROP CELLS SLIGHT
[2017-09-15 10:12] LABS: WHITE BLOOD COUNT 1.6 10^3/uL (4.0-10.5)
--- NOTE | 2017-09-15 19:48 | PROGRESS NOTE E ---
Progress Note NAME: VALENTINA PARIS : 1930 AGE: 87Y DATE: 09/15/2017 ROOM: 408 SUBJECTIVE: The patient presented with abdominal pain. There was initial concern that it was related to the gallbladder. The patient, however, was started on antibiotics empirically. The patient most likely has diverticulosis *------*. She reports that her abdominal pain is better but she is still having some left lower quadrant pain. PHYSICAL EXAMINATION: VITAL SIGNS: The patient is afebrile. Blood pressure was normal. Pulse is 90, respirations are 12. HEENT: Sclera are nonicteric. Oral mucous membranes are moist. NECK: No JVD. No thyromegaly. CHEST: Clear to auscultation. CARDIAC: Regular rate and rhythm. No murmurs, rubs or gallops appreciated. ABDOMEN: Positive bowel sounds. Soft, mild left lower quadrant tenderness but no guarding or rebound, no peritoneal signs. EXTREMITIES: No edema. NEUROLOGIC: Patient was alert and oriented x3. ASSESSMENT/PLAN: Abdominal pain. This is suspicious for diverticulitis. We will continue with the antibiotics. We will advance her diet. She has remained afebrile and has a normal white count and if she tolerates her diet well, and her pain is tolerable, we can hopefully discharge home tomorrow. DICTATING PHYSICIAN: Renetta BAUMAN M.D. [id number] PHY#: [id number] ID: [id number] JOB#: [id number] ACCT: [id number] cc: >
[2017-09-15] MEDS: MORPHINE SULFATE 10 MG/ML INJ IV PRN (21:54)
[2017-09-16] MEDS: PIPERACILLIN SODIUM/TAZOBACTAM 3.375 GM in NORMAL SALINE 100 ML IV SCH ×5 (00:11→23:52)
[2017-09-16] MEDS: NORMAL SALINE 1000 ML 1,000 ML IV PRN (00:11)
[2017-09-16] MEDS: ACETAMINOPHEN 325 MG TABLET PO PRN (00:11)
[2017-09-16] MEDS: LANSOPRAZOLE 15 MG TAB.RAP.DR PO SCH (06:25)
[2017-09-16] MEDS: POTASSI CL 20 MEQ/50 ML RIDER 20 MEQ/50 ML RTUPB IV SCH ×2 (08:04→10:12)
[2017-09-16] MEDS: METOPROLOL TARTRATE 25 MG TABLET PO SCH ×2 (10:07→21:24)
[2017-09-16] MEDS: SPIRONOLACTONE 25 MG TABLET PO SCH (10:08)
--- NOTE | 2017-09-16 11:34 | PDOC CONSULTATION ---
Consultation Consult Date: 09/16/17 Attending physician:: HENRY WILKERSON Consult reason:: Abdominal pain, diarrhea History of Present Illness Admission Date/PCP: 09/13/17 22:13 History of Present Illness: I am asked to see this patient by the hospitalist service was originally admitted by the Surgicalist has abnormal CT scan suggestive of cholecystitis it was felt that she had more diverticulitis and is being treated as such spoke with RN, patient has had been having abdominal discomfort along with diarrhea several times per day currently on antibiotics has a somewhat distended abdomen in speaking with the patient however, she is a poor historian she states she came to the ED mainly for diarrhea in fact she denies any abdominal pain when questioned no fever or chills previous colonoscopy in , some diverticulosis noted biopsies are negative patient also had an EGD a month prior to that, biopsies are negative as well would check for C. Diff if not already done, biopsies for collagenous, microscopic, lymphocytic colitis Past Medical History Cardiac Medical History: Reports: Hypertension Denies: Coronary Artery Disease, Myocardial Infarction Pulmonary Medical History: Denies: Asthma, Bronchitis, Chronic Obstructive Pulmonary Disease (COPD), Pneumonia Neurological Medical History: Denies: Seizures Endocrine Medical History: Reports: None Renal/ Medical History: Reports: None Malignancy Medical History: Reports: Other - History of melanoma GI Medical History: Reports: Other - Cirrhosis by her history. Musculoskeltal Medical History: Reports: Arthritis Skin Medical History: Reports: Other - History of melanoma Traumatic Medical History: Reports: None Hematology: Denies: Anemia Infectious Medical History: Reports: None Past Surgical History Past Surgical History: Reports: Hysterectomy Social History Lives with: Family Smoking Status: Never Smoker Frequency of Alcohol Use: Heavy - until stopped last year. Known to have Cirrhosis of the liver. Being followed by open end spinning operator Dr Wilkerson for this. Also known to have low platelet count. Hx Recreational Drug Use: No Drugs: None Hx Prescription Drug Abuse: No Family History Family History: Reviewed & Not Pertinent Parental Family History Reviewed: Yes Children Family History Reviewed: Unknown Sibling(s) Family History Reviewed.: Unknown Medication/Allergy Home Medications: Alendronate Sodium [Fosamax 70 mg Tablet] 1 tab PO [place]@1000 09/14/17 Furosemide [Lasix 20 mg Tablet] 20 mg PO QAM 09/14/17 Lisinopril [Prinivil] 20 mg PO DAILY 09/14/17 Losartan Potassium [Cozaar 50 mg Tablet] 50 mg PO DAILY 09/14/17 Metoprolol Tartrate [Lopressor 50 mg Tablet] 50 mg PO Q12 09/14/17 Omeprazole 20 mg PO Q6AM 09/14/17 Oxybutynin Chloride [Ditropan 5 Mg Tablet] 5 mg PO DAILY 09/14/17 Spironolactone [Aldactone] 50 mg PO DAILY 09/14/17 Allergies/Adverse Reactions: No Known Allergies Allergy (Verified 07/15/17 14:32) Review of Systems Constitutional: ABSENT: fever(s), headache(s), night sweats, weakness Eyes: ABSENT: visual disturbances Ears: ABSENT: hearing changes Nose, Mouth, and Throat: ABSENT: mouth pain, sore throat Cardiovascular: ABSENT: edema, orthropnea Respiratory: ABSENT: dyspnea, hemoptysis Gastrointestinal: PRESENT: abdominal pain, bloating, diarrhea. ABSENT: nausea, vomiting Genitourinary: ABSENT: dysuria, hematuria Musculoskeletal: ABSENT: deformity, joint swelling Integumentary: ABSENT: lesions, pruritus Neurological: ABSENT: syncope, tingling, tremor(s) Endocrine: ABSENT: polydipsia, polyphagia, polyuria Hematologic/Lymphatic: ABSENT: easy bruising Physical Exam Vital Signs: Temp Pulse Resp BP Pulse Ox 98.5 F 80 20 111/61 100 09/16/17 08:49 09/16/17 08:49 09/16/17 08:49 09/16/17 08:49 09/16/17 08:49 Intake & Output 09/15/17 09/16/17 09/17/17 06:59 06:59 06:59 Intake Total 3992 1989 Output Total 2 Balance 3990 1989 Weight 51 kg 55.1 kg General appearance: PRESENT: no acute distress, well-developed, well-nourished Head exam: PRESENT: atraumatic, normocephalic Eye exam: PRESENT: EOMI, PERRLA. ABSENT: nystagmus, periorbital swelling, scleral icterus Mouth exam: PRESENT: moist, neck supple Teeth exam: ABSENT: edentulous Throat exam: ABSENT: tonsillar exudate, tonsillogmegaly Neck exam: ABSENT: meningismus, tenderness, thyromegaly Respiratory exam: PRESENT: symmetrical, unlabored. ABSENT: tachypnea, wheezes Cardiovascular exam: PRESENT: RRR, +S1, +S2 GI/Abdominal exam: PRESENT: soft. ABSENT: rebound, rigid, tenderness Extremities exam: ABSENT: joint swelling Musculoskeletal exam: ABSENT: full ROM Neurological exam: PRESENT: oriented to time, oriented to situation, CN II-XII grossly intact Skin exam: PRESENT: normal color. ABSENT: mottled, pallor, petechiae, urticaria , vesicles Results Laboratory Results: 09/15/17 07:52 09/15/17 07:52 09/14/17 07:45 Clean Catch Midstream Urine Culture - Final NO GROWTH 2 DAYS 09/14/17 09/14/17 10:05 10:05 Creatine Kinase 41 CK-MB (CK-2) < 0.22 Troponin I < 0.012 Impressions: Abdomen/Pelvis CT 09/13/17 19:02 IMPRESSION: Cholelithiasis and cholecystitis with pericholecystic fluid. Minimal fluid around the liver spleen ANd in the pelvis. Chest X-Ray 09/13/17 21:34 IMPRESSION: NO ACUTE RADIOGRAPHIC FINDING IN THE CHEST. Assessment & Plan - Diagnosis (1) Change in bowel habits Plan: her main complaint is for diarrhea several times per day, no blood may need repeat colon evaluation at some point previous colonoscopy done about 2 months ago (2) Abdominal pain Plan: patient has pain prior to her bowel movement she has some associated abdominal distension patient treated for presumed diverticulitis however, ? possible ischemic colitis, although less likely (3) Cholelithiasis and acute cholecystitis without obstruction Is this a current diagnosis for this admission?: Yes Plan: was admitted for this based on some pericholecystic fluid as well felt not to be the major issue, now on the hospitalist service (4) Diverticulosis Is this a current diagnosis for this admission?: Yes Plan: noted on previous colonoscopy patient had biopsies that are negative for other potential reasons for her diarrhea would check for C.Diff if not already done during this admission - Time Time Spent: 50 to 70 Minutes
--- NOTE | 2017-09-16 11:48 | PDOC PROGRESS REPORT ---
Subjective Progress Note for:: 09/16/17 Subjective:: Complains of feeling bad all over. Also has continued to have diarrhea. She had a fever last night of 101.3 Reason For Visit: CHOLELITHISIS,ACUTE CHOLECYSTITIS,HYPERTENSION Physical Exam Vital Signs: Temp Pulse Resp BP Pulse Ox 98.5 F 80 20 111/61 100 09/16/17 08:49 09/16/17 08:49 09/16/17 08:49 09/16/17 08:49 09/16/17 08:49 Intake & Output 09/15/17 09/16/17 09/17/17 06:59 06:59 06:59 Intake Total 3992 1989 Output Total 2 Balance 3990 1989 Weight 51 kg 55.1 kg General appearance: PRESENT: no acute distress Eye exam: PRESENT: conjunctiva pink. ABSENT: scleral icterus Mouth exam: PRESENT: moist, tongue midline Neck exam: ABSENT: JVD Respiratory exam: PRESENT: clear to auscultation ira. ABSENT: rales, rhonchi, wheezes Cardiovascular exam: PRESENT: RRR. ABSENT: diastolic murmur, rubs, systolic murmur GI/Abdominal exam: PRESENT: normal bowel sounds, soft, tenderness - Minimal diffuse tenderness. ABSENT: distended, guarding, mass, organolmegaly, rebound Extremities exam: ABSENT: calf tenderness, clubbing, pedal edema Neurological exam: PRESENT: alert, awake, oriented to person, oriented to place , oriented to time, oriented to situation, CN II-XII grossly intact. ABSENT: motor sensory deficit Psychiatric exam: PRESENT: appropriate affect Skin exam: PRESENT: dry, intact, warm. ABSENT: cyanosis, rash Results Laboratory Results: 09/15/17 07:52 09/15/17 07:52 09/14/17 07:45 Clean Catch Midstream Urine Culture - Final NO GROWTH 2 DAYS 09/14/17 09/14/17 10:05 10:05 Creatine Kinase 41 CK-MB (CK-2) < 0.22 Troponin I < 0.012 Impressions: Abdomen/Pelvis CT 09/13/17 19:02 IMPRESSION: Cholelithiasis and cholecystitis with pericholecystic fluid. Minimal fluid around the liver spleen ANd in the pelvis. Chest X-Ray 09/13/17 21:34 IMPRESSION: NO ACUTE RADIOGRAPHIC FINDING IN THE CHEST. Assessment & Plan - Diagnosis (1) Cholelithiasis and acute cholecystitis without obstruction Is this a current diagnosis for this admission?: Yes Plan: Patient had fever to 104 and has some abdominal pain on presentation and there was concern that this may represent acute cholecystitis. The patient however has minimal right upper quadrant pain and her alkaline phosphatase and transaminases were normal. She does have a history of diverticulosis. She was started on antibiotics empirically for diverticulitis although the CT scan did not show any evidence for it. Her pain is mostly in the left lower quadrant. She continues to have complaints of diarrhea. She had a fever last night to 101.3. Because of this GI consultation was obtained. The possibility of this representing ischemic colitis is considered. She is getting Zosyn along with IV fluids. (2) Hypertension Is this a current diagnosis for this admission?: Yes Plan: We will continue with her outpatient regimen. (3) Cirrhosis Is this a current diagnosis for this admission?: Yes Plan: Patient has a long history of alcohol abuse but has not drank for the last 6 months. Her coagulation studies are only slightly abnormal with an INR of 1.36. No evidence for any type of encephalopathy. (4) Diverticulosis Is this a current diagnosis for this admission?: Yes Plan: Patient does have a history diverticulosis and does have some left lower quadrant pain. She had a abdominal CT that showed no evidence for acute diverticulitis however was started on Zosyn given her clinical picture. - Time Time Spent with patient: 25-34 minutes - Inpatient Certification Medical Necessity: Need For IV Fluids, Need for IV Antibiotics
[2017-09-16 13:32] LABS: PATH REVIEW PATHOLOGIST REVIEWED
[2017-09-17 04:47] LABS: HEMATOCRIT 27.6 % (36.0-47.0); HEMOGLOBIN 9.4 g/dL (12.0-15.5); MEAN CORPUSCULAR HEMOGLOBIN 25.9 pg (27.0-33.4); MEAN CORPUSCULAR HGB CONC 33.9 g/dL (32.0-36.0); MEAN CORPUSCULAR VOLUME 76 fl (80-97); RED BLOOD COUNT 3.62 10^6/uL (3.72-5.28)
[2017-09-17 04:58] LABS: ANION GAP 7 (5-19); BLOOD UREA NITROGEN 3 mg/dL (7-20); CARBON DIOXIDE 19 mmol/L (22-30); CHLORIDE 115 mmol/L (98-107); GLUCOSE 84 mg/dL (75-110); SODIUM 140.8 mmol/L (137-145)
[2017-09-17 05:01] LABS: WHITE BLOOD COUNT 2.7 10^3/uL (4.0-10.5)
[2017-09-17 05:02] LABS: PLATELET COUNT 51 10^3/uL (150-450)
[2017-09-17 05:13] LABS: CALCIUM 6.9 mg/dL (8.4-10.2); POTASSIUM 2.8 mmol/L (3.6-5.0)
[2017-09-17] MEDS ORDERED: CALCIUM GLUCONATE 1000 MG/10 ML INJ IV ONE (05:30)
[2017-09-17 05:31] LABS: ABSOLUTE LYMPHOCYTES# (MANUAL) 1.1 10^3/uL (0.5-4.7); ABSOLUTE MONOCYTES # (MANUAL) 0.3 10^3/uL (0.1-1.4); ABSOLUTE NEUTROPHILS# (MANUAL) 1.3 10^3/uL (1.7-8.2); BASOPHILS % (MANUAL) 0 % (0-2); EOSINOPHILS % (MANUAL) 1 % (0-6); LYMPHOCYTES % (MANUAL) 41 % (13-45); MONOCYTES % (MANUAL) 10 % (3-13); SEGMENTED NEUTROPHILS % (MAN) 48 % (42-78); TOTAL CELLS COUNTED 100
[2017-09-17 05:35] LABS: ACANTHOCYTES 2+; ANISOCYTOSIS 1+; BURR CELLS SLIGHT; OVALOCYTES 1+; PLATELET COMMENT DECREASED; POIKILOCYTOSIS 2+
[2017-09-17] MEDS: LANSOPRAZOLE 15 MG TAB.RAP.DR PO SCH (05:47)
[2017-09-17] MEDS: PIPERACILLIN SODIUM/TAZOBACTAM 3.375 GM in NORMAL SALINE 100 ML IV SCH ×3 (05:47→17:57)
[2017-09-17] MEDS ORDERED: POTASSIUM CHLORIDE 10 MEQ TABLET.SA PO ONE (06:00)
[2017-09-17] MEDS: POTASSIUM CHLORIDE 20 MEQ/50 ML RTU IV SCH ×2 (06:28→07:58)
--- NOTE | 2017-09-17 09:12 | PDOC PROGRESS REPORT ---
Subjective Progress Note for:: 09/17/17 Subjective:: still complaining of diarrhea, had temp overnight patient on Zosyn, being treated for presumed diverticulitis may have to add flagyl to cover anaerobic organisms ? if patient may need to be checked for influenza as well. has abdominal distension, very vague patient complaints Reason For Visit: CHOLELITHISIS,ACUTE CHOLECYSTITIS,HYPERTENSION Physical Exam Vital Signs: Temp Pulse Resp BP Pulse Ox 99.0 F 84 24 H 130/69 H 100 09/17/17 08:00 09/17/17 08:00 09/17/17 08:00 09/17/17 08:00 09/17/17 08:00 Intake & Output 09/16/17 09/17/17 09/18/17 06:59 06:59 06:59 Intake Total 1989 4161 Output Total 960 Balance 1989 320 Weight 55.1 kg 56.6 kg General appearance: PRESENT: no acute distress, well-developed, well-nourished Head exam: PRESENT: atraumatic, normocephalic Eye exam: PRESENT: EOMI, PERRLA. ABSENT: nystagmus, periorbital swelling, scleral icterus Mouth exam: PRESENT: moist, neck supple Throat exam: ABSENT: tonsillar exudate, tonsillogmegaly Neck exam: ABSENT: meningismus, tenderness, thyromegaly Respiratory exam: PRESENT: symmetrical, unlabored. ABSENT: tachypnea, wheezes Cardiovascular exam: PRESENT: RRR, +S1, +S2 GI/Abdominal exam: PRESENT: distended. ABSENT: rebound, rigid Extremities exam: ABSENT: joint swelling Musculoskeletal exam: PRESENT: full ROM Neurological exam: PRESENT: oriented to time, oriented to situation, CN II-XII grossly intact Psychiatric exam: PRESENT: appropriate affect Focused psych exam: ABSENT: restlessness Skin exam: PRESENT: normal color. ABSENT: mottled, petechiae, urticaria, vesicles Results Laboratory Results: 09/17/17 04:13 09/17/17 04:13 09/17/17 09/17/17 09/17/17 04:13 04:13 04:13 WBC 2.7 L D RBC 3.62 L Hgb 9.4 L Hct 27.6 L MCV 76 L MCH 25.9 L MCHC 33.9 RDW 17.0 H Plt Count 51 L Seg Neutrophils % Not Reportable Lymphocytes % Not Reportable Monocytes % Not Reportable Eosinophils % Not Reportable Basophils % Not Reportable Absolute Neutrophils Not Reportable Absolute Lymphocytes Not Reportable Absolute Monocytes Not Reportable Absolute Eosinophils Not Reportable Absolute Basophils Not Reportable Sodium 140.8 Potassium 2.8 L* Chloride 115 H Carbon Dioxide 19 L Anion Gap 7 BUN 3 L Creatinine 0.54 Est GFR ( Amer) > 60 Est GFR (Non-Af Amer) > 60 Glucose 84 Calcium 6.9 L* Magnesium 1.6 09/14/17 07:45 Clean Catch Midstream Urine Culture - Final NO GROWTH 2 DAYS 09/14/17 09/14/17 10:05 10:05 Creatine Kinase 41 CK-MB (CK-2) < 0.22 Troponin I < 0.012 Impressions: Abdomen/Pelvis CT 09/13/17 19:02 IMPRESSION: Cholelithiasis and cholecystitis with pericholecystic fluid. Minimal fluid around the liver spleen ANd in the pelvis. Chest X-Ray 09/13/17 21:34 IMPRESSION: NO ACUTE RADIOGRAPHIC FINDING IN THE CHEST. Assessment & Plan - Diagnosis (1) Change in bowel habits Plan: Diarrhea onset, ? possible infectious diverticulitis usually presents with more constipation. on Zosyn, may have to add flagyl C.Diff is negative no other recent antibiotics recent colonoscopy was negative will continue to follow avoid repeat colonoscopy for now (3) Cholelithiasis and acute cholecystitis without obstruction Is this a current diagnosis for this admission?: Yes (4) Diverticulosis Is this a current diagnosis for this admission?: Yes - Time Time Spent with patient: 15-24 minutes
[2017-09-17] MEDS: SPIRONOLACTONE 25 MG TABLET PO SCH (10:33)
[2017-09-17] MEDS: METOPROLOL TARTRATE 25 MG TABLET PO SCH ×2 (10:34→21:44)
--- NOTE | 2017-09-17 13:13 | EKG REPORT ---
SEVERITY:- BORDERLINE ECG - SINUS RHYTHM LOW VOLTAGE THROUGHOUT : Confirmed by: Velasquez Hester MD 17-Sep-2017 13:11:56
[2017-09-17] MEDS ORDERED: MAG HYDROX/AL HYDROX/SIMETH SUSP 30 ML UDCUP PO ONE (15:00)
[2017-09-17] MEDS ORDERED: METOCLOPRAMIDE HCL ORAL SOLN 10 MG/10 ML UDCUP PO ONE (15:00)
[2017-09-17] MEDS ORDERED: LIDOCAINE 2% VISCOUS SOLN 20 ML UDCUP PO ONE (15:00)
[2017-09-17] MEDS: NORMAL SALINE 1000 ML 1,000 ML IV PRN (16:27)
--- NOTE | 2017-09-17 18:10 | PDOC PROGRESS REPORT ---
Subjective Progress Note for:: 09/17/17 Subjective:: Continues to endorse abdominal tightness, which is difficult to describe. Patient feels it is diffuse. Denies pain, NV. Has been afebrile over last 24 hours. Eating small amounts. Has loose bowel movement -- denies hematochezia or melena. Reason For Visit: ACUTE CHOLECYSTITIS,SEPSIS Physical Exam Vital Signs: Temp Pulse Resp BP Pulse Ox 98.7 F 82 20 115/60 100 09/17/17 15:05 09/17/17 15:05 09/17/17 15:05 09/17/17 15:05 09/17/17 15:05 Intake & Output 09/16/17 09/17/17 09/18/17 06:59 06:59 06:59 Intake Total 1989 4161 574 Output Total 960 Balance 1989 3201 574 Weight 55.1 kg 56.6 kg General appearance: PRESENT: other - Mild distress secondary to abdominal discomfort Head exam: PRESENT: normocephalic Mouth exam: PRESENT: moist Neck exam: PRESENT: full ROM Respiratory exam: ABSENT: chest wall tenderness Cardiovascular exam: PRESENT: RRR Vascular exam: PRESENT: normal capillary refill GI/Abdominal exam: PRESENT: distended, firm, normal bowel sounds. ABSENT: guarding, tenderness Neurological exam: PRESENT: alert, altered, oriented to person, oriented to place, oriented to time Skin exam: ABSENT: jaundice Results Laboratory Results: 09/17/17 04:13 09/17/17 04:13 09/17/17 09/17/17 09/17/17 04:13 04:13 04:13 WBC 2.7 L D RBC 3.62 L Hgb 9.4 L Hct 27.6 L MCV 76 L MCH 25.9 L MCHC 33.9 RDW 17.0 H Plt Count 51 L Seg Neutrophils % Not Reportable Lymphocytes % Not Reportable Monocytes % Not Reportable Eosinophils % Not Reportable Basophils % Not Reportable Absolute Neutrophils Not Reportable Absolute Lymphocytes Not Reportable Absolute Monocytes Not Reportable Absolute Eosinophils Not Reportable Absolute Basophils Not Reportable Sodium 140.8 Potassium 2.8 L* Chloride 115 H Carbon Dioxide 19 L Anion Gap 7 BUN 3 L Creatinine 0.54 Est GFR ( Amer) > 60 Est GFR (Non-Af Amer) > 60 Glucose 84 Calcium 6.9 L* Magnesium 1.6 09/14/17 09/14/17 09/17/17 10:05 10:05 11:33 Creatine Kinase 41 CK-MB (CK-2) < 0.22 Troponin I < 0.[address] Abdomen (09/13/17): Cholelithasis and cholecystitis with pericholecystic fluid. EKG (09/17/17): Normal sinus rhythm, low voltage Impressions: Abdomen/Pelvis CT 09/13/17 19:02 IMPRESSION: Cholelithiasis and cholecystitis with pericholecystic fluid. Minimal fluid around the liver spleen ANd in the pelvis. Chest X-Ray 09/13/17 21:34 IMPRESSION: NO ACUTE RADIOGRAPHIC FINDING IN THE CHEST. Assessment & Plan - Diagnosis (1) Abdominal pain Qualifiers: Abdominal location: generalized Qualified Code(s): R10.84 - Generalized abdominal pain Is this a current diagnosis for this admission?: Yes Plan: Presented with fever 104 and abodminal pain at admission. Workup showed mildly elevated Alk Phos with normal LFTs. CT showed evidence of cholecystitis. Seen by surgery earlier this admission and did not want to intervene surgically. Started on IV Zosyn for diverticulitis, even thought there was no radiographic evidence. - Afebrile over last 24 hours, HDS - Continues to have abdominal distention, generalized - Continue IV Zosyn, will hold off with Flagyl for now - GI cocktail ordered today - GI following, appreciate continued recs (2) Cholelithiasis and acute cholecystitis without obstruction Is this a current diagnosis for this admission?: Yes Plan: See above. No surgical intervention planned for now. Continue with IV anbitiotics. (3) Hypertension Is this a current diagnosis for this admission?: Yes Plan: Stable, continue current regimen (4) Hyperkalemia Is this a current diagnosis for this admission?: Yes Plan: LIkely secondary to diarrhea - K 2.8 on 09/17, repleted - Continue to monitor (5) Chest discomfort Is this a current diagnosis for this admission?: Yes Plan: Complaint today. Repeated EKG which showed NSR. Troponin negative * 1 - Likely due to abdominal pain and not cardiac in origin - Discontinued manager cardiac
[2017-09-18] MEDS: PIPERACILLIN SODIUM/TAZOBACTAM 3.375 GM in NORMAL SALINE 100 ML IV SCH ×4 (00:40→18:14)
[2017-09-18] MEDS: DIPHENHYDRAMINE HCL 25 MG CAPSULE PO PRN ×2 (02:31→21:42)
[2017-09-18] MEDS: LANSOPRAZOLE 15 MG TAB.RAP.DR PO SCH (05:51)
[2017-09-18] MEDS ORDERED: RINGERS SOLUTION 1,000 ML IV PRN (09:04)
--- NOTE | 2017-09-18 09:48 | PROGRESS NOTE E ---
Progress Note NAME: VALENTINA PARIS : 1930 AGE: 87Y DATE: 09/18/2017 ROOM: 408 SUBJECTIVE: The patient is currently lying in bed. The patient states that she has been unable to tolerate oral foods citing that she becomes significantly nauseated. The patient did have an episode of diarrhea yesterday but has had none since. The patient has been afebrile. Her blood pressures have been in a good range, and the patient has not voiced any concerns at this time. The patient is being followed by Surgery as well GI. The patient was seen by Dr. Wu. The patient does not voice any specific concerns at this time. REVIEW OF SYSTEMS: Rest of the review of systems negative. MEDICATIONS: Have been reviewed. OBJECTIVE: GENERAL: The patient is a an 87-year-old female who is awake and alert. She is oriented to person, place, time, and situation. She is just hard of hearing. She does not appear to be distressed. VITAL SIGNS: Temperature 97.7, pulse 79, respirations 16, blood pressure 146/69, oxygen saturation is 100% on room air. SKIN: Warm and dry. No rash. She is not diaphoretic. HEENT: Pupils equal, round, reactive to light and accommodation. Conjunctivae are pink. No JVP. CARDIOVASCULAR: Heart is regular. There is no murmur or rub. CHEST: Clear, symmetrical, unlabored. ABDOMEN: Soft, nontender, nondistended. BACK: No CVA tenderness or sacral edema. EXTREMITIES: No clubbing, cyanosis, or edema. PSYCHIATRIC: Appropriate affect. Pleasant mood. DIAGNOSTICS: Lab values are as follow: Hematology obtained on 09/17/2017: WBCs are 2.7, hemoglobin is 9.4, hematocrit is 27.6, platelet count is 150. Chemistry obtained on 09/17/2017: Sodium is 140, potassium 2.8, chloride is 115, carbon dioxide 19, BUN 3, creatinine is 0.54, glucose 84, calcium is 6.9, magnesium is 1.6. IMPRESSION AND PLAN: 1. HYPOKALEMIA. Will change the patient's IV fluids as well as obtain repeat BMP this morning and in the a.m. and supplement accordingly. 2. HYPOCALCEMIA. Will obtain albumin and follow. 3. PERSISTENT DIARRHEA. The patient's chemistry is reflective of GI losses. The patient's C. diff is negative. Will add other stool studies such as a culture and also probiotic therapy and follow. 4. HYPERTENSION. Will continue the patient's home blood pressure medications except for those that are nephrotoxic due to the patient's limited intake. The patient has been in acceptable range. 5. CHOLELITHIASIS AND ACUTE CHOLECYSTITIS WITHOUT OBSTRUCTION. Surgical intervention has been deferred. Will continue antibiotic therapy. 6. SEPSIS. The patient appears improved, however, going to repeat her hematology this morning. Cultures were negative. DISPOSITION: The patient is a FULL CODE. Pending patient's symptomatology and diagnostic findings, will reevaluate in the a.m. Time spent on this followup including assessment, plan, physical examination, patient education, review of records is 25 minutes. DICTATING PHYSICIAN: ETELVINA DUMONT NP [id number] PHY#: [id number] ID: [id number] JOB#: [id number] ACCT: [id number] cc: > MTDD
[2017-09-18 09:58] LABS: HEMATOCRIT 27.4 % (36.0-47.0); HEMOGLOBIN 9.3 g/dL (12.0-15.5); MEAN CORPUSCULAR HEMOGLOBIN 25.9 pg (27.0-33.4); MEAN CORPUSCULAR VOLUME 76 fl (80-97); RED BLOOD COUNT 3.59 10^6/uL (3.72-5.28); RED CELL DISTRIBUTION WIDTH 17.5 % (11.5-14.0)
[2017-09-18 10:00] LABS: ANION GAP 7 (5-19); CALCIUM 7.6 mg/dL (8.4-10.2); CARBON DIOXIDE 21 mmol/L (22-30); CHLORIDE 116 mmol/L (98-107); GLUCOSE 74 mg/dL (75-110); MAGNESIUM 1.7 mg/dL (1.6-2.3); POTASSIUM 3.2 mmol/L (3.6-5.0); SODIUM 144.2 mmol/L (137-145)
[2017-09-18 10:05] LABS: BLOOD UREA NITROGEN < 2 mg/dL (7-20)
[2017-09-18 10:17] LABS: PLATELET COUNT 66 10^3/uL (150-450)
[2017-09-18 10:24] LABS: ABSOLUTE LYMPHOCYTES# (MANUAL) 0.9 10^3/uL (0.5-4.7); ABSOLUTE MONOCYTES # (MANUAL) 0.4 10^3/uL (0.1-1.4); ABSOLUTE NEUTROPHILS# (MANUAL) 0.7 10^3/uL (1.7-8.2); ANISOCYTOSIS 2+; BASOPHILS % (MANUAL) 0 % (0-2); BURR CELLS SLIGHT; EOSINOPHILS % (MANUAL) 0 % (0-6); LYMPHOCYTES % (MANUAL) 44 % (13-45); MONOCYTES % (MANUAL) 21 % (3-13); OVALOCYTES 1+; PLATELET COMMENT DECREASED; POIKILOCYTOSIS 3+; POLYCHROMASIA SLIGHT; SCHISTOCYTES 2+; SEGMENTED NEUTROPHILS % (MAN) 33 % (42-78); TOTAL CELLS COUNTED 100
[2017-09-18] MEDS: LACTOBACILLUS ACIDOPHILUS 250 MG TAB PO SCH ×2 (10:45→18:14)
[2017-09-18] MEDS: METOPROLOL TARTRATE 50 MG TABLET PO SCH ×2 (10:45→21:42)
[2017-09-18] MEDS: SPIRONOLACTONE 25 MG TABLET PO SCH (10:45)
--- NOTE | 2017-09-18 15:29 | RADIOLOGY REPORT (SQ) ---
EXAM DESCRIPTION: KUB/ABDOMEN (SINGLE VIEW) COMPLETED DATE/TIME: 09/18/2017 2:57 pm REASON FOR STUDY: sepsis COMPARISON: CT from 09/13/2017. NUMBER OF VIEWS: One view. TECHNIQUE: Supine radiographic image of the abdomen acquired. LIMITATIONS: None. FINDINGS: BOWEL GAS PATTERN: Nonobstructive pattern. Mild gas in colon and stomach. CALCIFICATIONS: No suspicious calcifications. SOFT TISSUES: No gross mass or suggestion of organomegaly. HARDWARE: None in the abdomen. BONES: Osteopenia. Scoliosis and spondylosis. OTHER: No other significant finding. IMPRESSION: NO RADIOGRAPHIC EVIDENCE FOR ACUTE ABDOMINAL DISEASE. TECHNICAL DOCUMENTATION: JOB ID: [id number] [employer]- All Rights Reserved
[2017-09-18] MEDS: POTASSI CL 20 MEQ/50 ML RIDER 20 MEQ/50 ML RTUPB IV SCH ×2 (18:13→21:42)
[2017-09-19] MEDS: PIPERACILLIN SODIUM/TAZOBACTAM 3.375 GM in NORMAL SALINE 100 ML IV SCH ×2 (00:12→05:47)
[2017-09-19] MEDS: LANSOPRAZOLE 15 MG TAB.RAP.DR PO SCH (05:47)
[2017-09-19 07:19] LABS: HEMATOCRIT 27.3 % (36.0-47.0); HEMOGLOBIN 9.4 g/dL (12.0-15.5); MEAN CORPUSCULAR HGB CONC 34.3 g/dL (32.0-36.0); MEAN CORPUSCULAR VOLUME 76 fl (80-97); RED CELL DISTRIBUTION WIDTH 18.3 % (11.5-14.0); WHITE BLOOD COUNT 2.5 10^3/uL (4.0-10.5)
[2017-09-19 07:32] LABS: ALANINE AMINOTRANSFERASE 29 U/L (9-52); ALBUMIN 2.5 g/dL (3.5-5.0); ALKALINE PHOSPHATASE 76 U/L (38-126); ANION GAP 6 (5-19); ASPARTATE AMINO TRANSFERASE 25 U/L (14-36); BILIRUBIN,DIRECT 0.3 mg/dL (0.0-0.4); BILIRUBIN,TOTAL 0.9 mg/dL (0.2-1.3); CALCIUM 7.7 mg/dL (8.4-10.2); CARBON DIOXIDE 21 mmol/L (22-30); CHLORIDE 115 mmol/L (98-107); GLUCOSE 84 mg/dL (75-110); MAGNESIUM 1.6 mg/dL (1.6-2.3); POTASSIUM 3.4 mmol/L (3.6-5.0); SODIUM 141.9 mmol/L (137-145); TOTAL PROTEIN 4.8 g/dL (6.3-8.2)
[2017-09-19 07:38] LABS: BLOOD UREA NITROGEN < 2 mg/dL (7-20)
[2017-09-19 08:36] LABS: PLATELET COUNT 83 10^3/uL (150-450)
[2017-09-19 08:41] LABS: ABSOLUTE LYMPHOCYTES# (MANUAL) 1.2 10^3/uL (0.5-4.7); ABSOLUTE MONOCYTES # (MANUAL) 0.6 10^3/uL (0.1-1.4); ABSOLUTE NEUTROPHILS# (MANUAL) 0.8 10^3/uL (1.7-8.2); ANISOCYTOSIS 2+; BASOPHILS % (MANUAL) 0 % (0-2); EOSINOPHILS % (MANUAL) 0 % (0-6); HYPOCHROMASIA 2+; LYMPHOCYTES % (MANUAL) 44 % (13-45); MONOCYTES % (MANUAL) 23 % (3-13); POIKILOCYTOSIS 3+; POLYCHROMASIA 1+; SCHISTOCYTES 2+; SEGMENTED NEUTROPHILS % (MAN) 31 % (42-78); TOTAL CELLS COUNTED 100
[2017-09-19 08:42] LABS: ACANTHOCYTES 1+; BURR CELLS 1+; OVALOCYTES SLIGHT; PLATELET COMMENT DECREASED
[2017-09-19] MEDS: SPIRONOLACTONE 25 MG TABLET PO SCH (10:01)
[2017-09-19] MEDS: METOPROLOL TARTRATE 50 MG TABLET PO SCH ×2 (10:01→21:48)
[2017-09-19] MEDS: LACTOBACILLUS ACIDOPHILUS 250 MG TAB PO SCH ×2 (10:01→17:56)
--- NOTE | 2017-09-19 12:14 | PROGRESS NOTE E ---
Progress Note NAME: VALENTINA PARIS : 1930 AGE: 87Y DATE: 09/19/2017 ROOM: 408 SUBJECTIVE: The patient is currently lying in bed. The patient states that her diarrhea has resolved; however, she has significant abdominal distention. Upon conversation with the patient, this has been an ongoing issue for her. The patient states no one can tell her why this is happening. The patient denies any nausea or vomiting. No diarrhea, shortness of breath, dizziness or chest pain. The patient's appetite is much improved and the patient does not voice any other concerns at this time. REVIEW OF SYSTEMS: The rest of the review of systems is negative. MEDICATIONS: Medications have been reviewed. OBJECTIVE: GENERAL: The patient is an 87-year-old female who is awake, alert, and oriented to person, place, time, and situation. She is verbal, conversational, does not appear to be in any acute distress. VITAL SIGNS: As follows: Temperature is 98.3, pulse 70, respirations 20, blood pressure is 118/53, oxygen saturation is 97% on room air. SKIN: Warm and dry. No rash. She is not diaphoretic. HEENT: Pupils equal, round, and reactive to light and accommodation. Conjunctiva is pink. There is no evidence of JVP. CARDIOVASCULAR: Heart is regular. There is no murmur or rub. CHEST: Clear, symmetrical, unlabored. ABDOMEN: Distended, able to percuss gas sounds. Bowel sounds are present. No area of focal tenderness. EXTREMITIES: No clubbing, cyanosis, edema. PSYCHIATRIC: Appropriate affect. Pleasant mood. DIAGNOSTICS: Lab values are as follows. Hematology obtained on 09/19/2017: WBCs are 2.5, hemoglobin is 9.4, hematocrit is 27.3, platelet count is 83,000. Chemistry obtained on 09/19/2017: Sodium is 141, potassium 3.4, chloride is 115, carbon dioxide 21, BUN 2, creatinine is 0.55, glucose 84, calcium is 7.7, magnesium is 1.6, total protein 4.8, albumin 2.5. IMPRESSION AND PLAN: 1. ABDOMINAL DISTENTION AND DISCOMFORT. The patient's KUB is unremarkable. The patient overall feels much better. Given that the patient has had varying bowel patterns, do feel, especially with the addition of recent antibiotics, that this may be a clinical picture of small bowel bacterial overgrowth. Will start the patient on Xifaxan, discontinue antibiotics as she has completed a week's course of these, and continue with probiotic therapy. Will also give a one-time dose of simethicone for gas pain and follow. 2. HYPOKALEMIA. This was due to losses. Will give a dose of potassium today and follow. 3. HYPOCALCEMIA. This is proportional to her hypoalbuminemia. 4. PERSISTENT DIARRHEA. This has apparently improved with the addition of probiotic therapy. Have discontinued her antibiotics, which I think was also a culprit of this. C. diff was negative. Other stool studies thus far have not been remarkable. 5. HYPERTENSION. Blood pressures are in acceptable range. Continue to hold those nephrotoxic ones. 6. CHOLELITHIASIS AND ACUTE CHOLECYSTITIS WITHOUT OBSTRUCTION. The patient has completed a week's worth of antibiotic therapy. 7. SEPSIS SECONDARY TO THE ABOVE. The patient overall appears much improved. Cultures are negative. Will follow. DISPOSITION: THE PATIENT IS A FULL CODE. Pending the patient's symptomatology and diagnostic findings, will re-evaluate in the a.m. for possible discharge. Time spent on this followup, including assessment/plan, physical examination, patient education, review of records, is 25 minutes. DICTATING PHYSICIAN: ETELVINA DUMONT NP [id number] LEROYY#: [id number] ID: [id number] JOB#: [id number] ACCT: [id number] cc: >
[2017-09-19] MEDS ORDERED: POTASSIUM CHLORIDE 10 MEQ TABLET.SA PO ONE (12:30)
[2017-09-19] MEDS ORDERED: SIMETHICONE 80 MG TAB.CHEW PO ONE (12:30)
[2017-09-19] MEDS ORDERED: RIFAXIMIN 550 MG TABLET PO ONE ×2 (12:30)
[2017-09-19] MEDS: RIFAXIMIN 550 MG TABLET PO SCH (17:56)
[2017-09-19] MEDS: DIPHENHYDRAMINE HCL 25 MG CAPSULE PO PRN (21:49)
[2017-09-20] MEDS: LANSOPRAZOLE 15 MG TAB.RAP.DR PO SCH (05:27)
[2017-09-20] MEDS ORDERED: LOSARTAN POTASSIUM 50 MG TABLET PO SCH (10:00)
[2017-09-20] MEDS: LACTOBACILLUS ACIDOPHILUS 250 MG TAB PO SCH (10:27)
[2017-09-20] MEDS: SPIRONOLACTONE 25 MG TABLET PO SCH (10:28)
[2017-09-20] MEDS: RIFAXIMIN 550 MG TABLET PO SCH (10:28)
[2017-09-20] MEDS: METOPROLOL TARTRATE 50 MG TABLET PO SCH (10:28)
[2017-09-20] MEDS ORDERED: POTASSIUM CHLORIDE 10 MEQ TABLET.SA PO ONE (12:00)
[2017-09-20 13:01] VITALS: BP 127/87
--- NOTE | 2017-09-20 14:08 | DISCHARGE SUMMARY E ---
Discharge Summary NAME: VALENTINA PARIS : 1930 AGE: 87Y ADMITTED: 09/13/2017 DISCHARGED: 09/20/2017 CODE STATUS: FULL CODE. PRIMARY CARE PROVIDER: Dr. Arambula CONSULTATION DUST OPERATOR: Dr. Wu CONSULTATION SURGICALIST: Dr. Lagunas DISCHARGE DIAGNOSES: 1. Acute cholecystitis and cholelithiasis without obstruction. The patient has completed IV antibiotic therapy. 2. Small bowel bacterial overgrowth, a high suspicion of this. 3. Hypokalemia due to GI loses have been repleted. 4. Hypertension. 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 DISCHARGE MEDICATIONS: 1. Xifaxan 550 mg p.o. b.i.d., 60 tablets with 0 refills. 2. Align 4 mg 1 capsule b.i.d., 28 tablets with 0 refills. 3. Aldactone 50 mg p.o. daily. 4. Ditropan 5 mg p.o. daily. 5. Lopressor 50 mg p.o. q.12 hours. 6. Cozaar 50 mg p.o. daily. 7. Lasix 20 mg p.o. every a.m. 8. Fosamax 70 mg p.o. weekly on Saturday. DIET: Yogurt with each tray. ACTIVITY: As tolerated. DIAGNOSTICS: Lab values are as follow: Hematology obtained on 09/19/2017: WBCs are 2.5, hemoglobin is 9.4, hematocrit is 27.3, platelet count is 83,000. Coagulation obtained on 09/14/2017: PT is 17.6, INR is 1.36. Chemistry obtained on 09/19/2017: Sodium is 141, potassium 3.4, chloride is 115, carbon dioxide 21, BUN 2, creatinine is 0.55, glucose 84, lactic acid is 2, calcium is 7.7, magnesium is 1.6, bilirubin is 0.9, AST 25, ALT is 29, alk phos 76, total protein 4.8, albumin 2.5, lipase is 81, troponin is 0.012. Urinalysis obtained on 09/14/2017: Color yellow, appearance clear, pH is 5.0, specific gravity 1.047, protein negative, glucose negative, ketones trace, occult blood negative, nitrate negative, bilirubin negative, urobilinogen negative, leukocyte esterase negative, WBC 1, RBC 5, mucous rare, ascorbic acid negative. Serology obtained on 09/14/20098: C. diff toxin is negative. Microbiology: Blood cultures obtained on 09/13/2017 reveal no growth. Urine culture obtained on 09/14/[address] of the abdomen and pelvis obtained on 09/13/2017 reveals cholelithiasis and cholecystitis with pericholecystic fluid, minimal fluid around the liver, spleen, and pelvis. Chest x-ray obtained on 09/13/2017 reveals no acute radiographic finding of the chest. KUB obtained on 09/18/2017 reveals no radiographic evidence for acute abdominal disease. EKG obtained on 09/14/2017 reveals sinus rhythm. EKG obtained on 09/17/2017 reveals sinus rhythm. PHYSICAL EXAMINATION: GENERAL: On examination, the patient is a well-developed, well-nourished, 87-year-old female who is awake, alert, and oriented to person, place, time, and situation. She is verbal, conversational, ambulatory, and does not appear to be in any acute distress. VITAL SIGNS: Temperature 98.3, pulse 73, respirations 20, blood pressure 141/73, oxygen saturation is 97% on room air. SKIN: Warm and dry. No rash. She is not diaphoretic. HEENT: Pupils equal, round, reactive to light and accommodation. Conjunctivae are pink. There is no evidence of JVP. CARDIOVASCULAR: Heart is regular. There is no murmur or rub. CHEST: Clear, symmetrical, unlabored. ABDOMEN: Distended but no area of focal tenderness. Bowel sounds are present. EXTREMITIES: No clubbing, cyanosis, or edema. PSYCHIATRIC: Appropriate affect. Pleasant mood. HISTORY OF PRESENT ILLNESS: The patient is an 87-year-old female with a past medical history of hypertension. The patient presented to the emergency department with a chief complaint of abdominal pain in the lower quadrants as well as nausea. The patient presented via EMS and was found to have a temperature of 104. The patient's abdomen findings on CT scan showed that the patient had some pericolic fluid and the patient was admitted to the surgery service for a possible cholecystectomy. The patient, however, has minimal right upper quadrant pain. Her alk phos and transaminase are all normal. The patient does have a history of hypertension and reports a history of cirrhosis secondary to alcohol use but has not drank anything in the last 6 months. Currently the patient denies any problems except for left lower quadrant pain. Given these findings, the patient was referred to the hospitalist for consultation. HOSPITAL COURSE: The patient was admitted to the surgical unit. The patient was seen and evaluated by the hospitalist and was started on broad spectrum antibiotic coverage. The patient was also seen by Dr. Wu of gastroenterology who felt that the patient's symptoms were consistent with a cholelithiasis and felt the patient may benefit from Zosyn as well as Flagyl. The patient's diarrhea did resolve during her hospitalization and the patient's symptoms overall are much improved. The patient stated that she has had significant abdominal distension for quite awhile, which is believed to most likely be underlying ascites. The patient does have significant pancytopenia which has improved during her stay, however, most likely this is related to underlying cirrhosis. The patient does have variant changes in bowel habits and patient may have IBS versus an underlying small bowel bacterial overgrowth given her numerous exposures to antibiotics as of recently. Will treat the patient with a course of Xifaxan and she will follow up with Dr. Wu on an outpatient basis, and the patient is agreeable to this plan. DISCHARGE PLANNIN. The patient is to followup with her primary care provider within 1-2 weeks for hospital followup. Do recommend repeat CBC. 2. The patient is advised to followup within 2-4 weeks for hospital followup. 3. The patient will receive home health services including physical therapy and walker. Time spent on this discharge including assessment, plan, physical examination, patient education, and review of records is 35 minutes. DICTATING PHYSICIAN: ETELVINA DUMONT NP [id number] Y#: [id number] ID: [id number] JOB#: [id number] ACCT: [id number] cc:CRIKCET LAGUNAS M.D., MICHAEL NP MOKBELPU, MAY M.D. >
[2017-09-22] MEDS ORDERED: (PENDING PHARMACY ID) (Alendronate Sodium [Fosamax 70 Mg Tablet] 1 TAB) PO SCH (10:00)
== END 2017-09-20 15:25 | disposition home health service (06) | DRG 445 ==
LOC: ER 18:03 → EH 22:13 → 4N 09-14 01:09
PROVIDERS: ADMIT Surgery; ATTEND Internal Medicine
DX: K80.00 Calculus of gallbladder with acute cholecystitis without obstruction (principal); D61.818 Other pancytopenia; I10 Essential (primary) hypertension; E87.6 Hypokalemia; K70.30 Alcoholic cirrhosis of liver without ascites; M19.90 Unspecified osteoarthritis, unspecified site; K57.90 Diverticulosis of intestine, part unspecified, without perforation or abscess without bleeding; R19.7 Diarrhea, unspecified; E83.51 Hypocalcemia; Z85.820 Personal history of malignant melanoma of skin; Z90.710 Acquired absence of both cervix and uterus; Z79.899 Other long term (current) drug therapy; Z82.49 Family history of ischemic heart disease and other diseases of the circulatory system
CPT/HCPCS: 36415; 71045; 74018; 74177; 80048; 80053; 81001; 82040; 82550; 82553; 82803; 83605; 83690; 83735; 84484; 85025; 85610; 86850; 86900; 86901; 87040; 87045; 87086; 87205; 87324; 87493; 93005; 93010; 96365; 96368; 99285; A9270-GY; G8978-GP; G8979-GP; J0610; J0696; J2270; J2543; J3480; J3490; J7030

== ENCOUNTER → 2018-07-18 | Outpatient (CLI) | payer MEDICARE ==
--- NOTE | 2018-07-18 13:15 | RADIOLOGY REPORT (SQ) ---
EXAM DESCRIPTION: U/S ABDOMEN COMPLETE W/DOPPLER COMPLETED DATE/TIME: 07/18/2018 10:58 am REASON FOR STUDY: CIRRHOSIS OF LIVER (K74.60) K74.60 UNSPECIFIED CIRRHOSIS OF LIVER COMPARISON: None. TECHNIQUE: Dynamic and static grayscale images acquired of the abdomen and recorded on PACS. Additio nal selected color Doppler and spectral images recorded. LIMITATIONS: None. FINDINGS: PANCREAS: No masses. Visualized pancreatic duct normal caliber. LIVER: Coarse echotexture. No definable mass. LIVER VASCULATURE: Normal directional flow of the main portal vein and hepatic veins. GALLBLADDER: Multiple gallstones. No wall thickening. No pericholecystic fluid. ULTRASOUND-DETECTED RODGERS'S SIGN: Negative. INTRAHEPATIC DUCTS AND COMMON DUCT: CBD and intrahepatic ducts normal caliber. No filling defects. INFERIOR VENA CAVA: Patent. AORTA: No aneurysm. RIGHT KIDNEY: Small, 8.3 cm. Cortical thinning. No hydronephrosis. No calcifications. LEFT KIDNEY: Normal size, 9.3 cm. Cortical thinning. No hydronephrosis. No calcifications. SPLEEN: Normal size, 11 cm. No solid masses. PERITONEAL AND PLEURAL SPACES: No ascites or effusions. OTHER: No other significant finding. IMPRESSION: 1. Coarse echotexture of the liver consistent with the diagnosis of cirrhosis. 2. Cholelithiasis with no evidence of cholecystitis. 3. There appears to be some degree of renal atrophy. 4. No ascites. TECHNICAL DOCUMENTATION: JOB ID: [id number] [employer]- All Rights Reserved Reading location - IP/workstation name: [email or web address]
== END ==
LOC: RAD 10:10
PROVIDERS: ATTEND Internal Medicine
DX: K74.60 Unspecified cirrhosis of liver (principal)
CPT/HCPCS: 76700; 93976

== ENCOUNTER → 2019-01-23 | Outpatient (CLI) | payer MEDICARE ==
--- NOTE | 2019-01-23 10:59 | RADIOLOGY REPORT (SQ) ---
EXAM DESCRIPTION: U/S ABDOMEN COMPLETE W/DOPPLER COMPLETED DATE/TIME: 01/23/2019 8:58 am REASON FOR STUDY: ALCOHOLIC CIRRHOSIS OF LIVER (K70.31) K70.31 ALCOHOLIC CIRRHOSIS OF LIVER WITH CITES COMPARISON: CT abdomen pelvis 09/13/2017 Abdominal ultrasound 07/18/2018 TECHNIQUE: Dynamic and static grayscale images acquired of the abdomen and recorded on PACS. Additio nal selected color Doppler and spectral images recorded. Note: Study does not meet criteria for complete doppler/duplex scan LIMITATIONS: None. FINDINGS: PANCREAS: Midline pancreas unremarkable LIVER: Nodular contour, heterogeneous echogenicity from diffuse hepatocellular disease. No discrete masses LIVER VASCULATURE: Normal directional flow of the main portal vein and hepatic veins. GALLBLADDER: Multiple tiny stones in the gallbladder. No gallbladder wall thickening or pericholecys tic fluid. ULTRASOUND-DETECTED RODGERS'S SIGN: Negative. INTRAHEPATIC DUCTS AND COMMON DUCT: CBD and intrahepatic ducts normal caliber. No filling defects. D istal common duct not well seen due to duodenum gas INFERIOR VENA CAVA: Normal flow. AORTA: No aneurysm. RIGHT KIDNEY: Normal size. Normal echogenicity. No solid or suspicious masses. 1.5 cm right low er pole renal cortical cyst No hydronephrosis. No calcifications. LEFT KIDNEY: Normal size. Normal echogenicity. No solid or suspicious masses. No hydronephrosi s. No calcifications. SPLEEN: Normal size. No solid masses. PERITONEAL AND PLEURAL SPACES: Trace right subphrenic free fluid OTHER: No other significant finding. IMPRESSION: Nodular liver from cirrhosis. Antegrade portal vein flow. Trace right subphrenic free fluid. Gallstones without ultrasound evidence of acute cholecystitis TECHNICAL DOCUMENTATION: JOB ID: [id number] [employer]- All Rights Reserved Reading location - IP/workstation name: [email or web address]
== END ==
LOC: RAD 07:52
PROVIDERS: ATTEND Internal Medicine
DX: K70.31 Alcoholic cirrhosis of liver with ascites (principal)
CPT/HCPCS: 76700; 93976

== ENCOUNTER 2019-06-12 10:26 | Emergency (ER) | payer MEDICARE ==
--- NOTE | 2019-06-12 11:20 | ER Document Report ---
ED General - General Chief Complaint: Abdominal Swelling Stated Complaint: ABDOMINAL SWELLING Time Seen by Provider: 06/12/19 10:58 Primary Care Provider: DIGNA BLANCO MD [Primary Care Provider] - Follow up as needed TRAVEL OUTSIDE OF THE [place] IN LAST 30 DAYS: No - HPI Patient complains to provider of: abdominal distention Notes: 88 y/o presenting to ED for evaluation of abdominal distention she states she was sent to the ED for paracentesis she denies abdominal pain, nausea/fever/vomiting she has a "spot" on her live that she has elected to not pursue any type of testing for and does not want to be admitted for this or have any testing done on the fluid she denies urinary pain she has never had to have a paracentesis previously - Related Data Allergies/Adverse Reactions: No Known Allergies Allergy (Verified 06/12/19 10:54) Past Medical History - Social History Smoking Status: Unknown if Ever Smoked Chew tobacco use (# tins/day): No Frequency of alcohol use: None Drug Abuse: None Family History: Reviewed & Not Pertinent Patient has suicidal ideation: No Patient has homicidal ideation: No - Past Medical History Cardiac Medical History: Reports: Hx Hypertension Denies: Hx Coronary Artery Disease, Hx Heart Attack Pulmonary Medical History: Denies: Hx Asthma, Hx Bronchitis, Hx COPD, Hx Pneumonia Neurological Medical History: Denies: Hx Cerebrovascular Accident, Hx Seizures Renal/ Medical History: Denies: Hx Peritoneal Dialysis Musculoskeletal Medical History: Reports Hx Arthritis Past Surgical History: Reports: Hx Hysterectomy - Immunizations Hx Diphtheria, Pertussis, Tetanus Vaccination: No Hx Pneumococcal Vaccination: 09/09/14 Review of Systems - Review of Systems Constitutional: No symptoms reported EENT: No symptoms reported Cardiovascular: No symptoms reported Respiratory: No symptoms reported Gastrointestinal: Abdomen distended Genitourinary: No symptoms reported Female Genitourinary: No symptoms reported Musculoskeletal: No symptoms reported Skin: No symptoms reported Hematologic/Lymphatic: No symptoms reported Neurological/Psychological: No symptoms reported Physical Exam - Vital signs Vitals: Temp Pulse Resp BP Pulse Ox 97.7 F 72 18 141/64 H 96 06/12/19 10:32 06/12/19 10:32 06/12/19 10:32 06/12/19 10:32 06/12/19 10:32 Interpretation: Normal - General General appearance: Appears well, Alert - HEENT Head: Normocephalic, Atraumatic Eyes: Normal Pupils: PERRL - Respiratory Respiratory status: No respiratory distress Chest status: Nontender Breath sounds: Normal Chest palpation: Normal - Cardiovascular Rhythm: Regular Heart sounds: Normal auscultation Murmur: No - Abdominal Inspection: Normal Distension: Distended, Tympanitic, Fluid wave Bowel sounds: Normal Tenderness: Nontender Organomegaly: No organomegaly - Back Back: Normal, Nontender - Extremities General upper extremity: Normal inspection, Nontender, Normal color, Normal ROM, Normal temperature General lower extremity: Normal inspection, Nontender, Normal color, Normal ROM, Normal temperature, Normal weight bearing. No: Elia's sign - Neurological Neuro grossly intact: Yes Cognition: Normal Orientation: AAOx4 [place] Coma Scale Eye Opening: Spontaneous [place] Coma Scale Verbal: Oriented [place] Coma Scale Motor: Obeys Commands Ronald Coma Scale Total: 15 Speech: Normal Motor strength normal: LUE, RUE, LLE, RLE Sensory: Normal - Psychological Associated symptoms: Normal affect, Normal mood - Skin Skin Temperature: Warm Skin Moisture: Dry Skin Color: Normal Course - Re-evaluation Re-evalutation: 06/12/19 15:17 abd is distended w/ fluid wave discussed w/ radiology who agreed to therapeutic paracentesis if labs were amenable labs checked paracentesis done patient feels better discussed need for return if she has any concerns she did not want any testing on fluid and it is felt by family and her that she has a liver malignancy that is likely progressing they understand and accept this - Vital Signs Vital signs: Temp Pulse Resp BP Pulse Ox 97.7 F 72 18 141/64 H 96 06/12/19 10:32 06/12/19 10:32 06/12/19 10:32 06/12/19 10:32 06/12/19 10:32 - Laboratory Result Diagrams: 06/12/19 11:38 Laboratory results interpreted by me: 06/12/19 06/12/19 11:38 11:38 Hgb 9.7 L Hct 29.1 L MCV 74 L MCH 24.6 L RDW 18.1 H Plt Count 118 L [place] % (Auto) 16.2 H PT 16.6 H - Diagnostic Test Radiology reviewed: Reports reviewed Discharge - Discharge Clinical Impression: Elevated blood pressure reading Ascites Qualifiers: Ascites type: other type Qualified Code(s): R18.8 - Other ascites Condition: Stable Disposition: HOME, SELF-CARE Instructions: Abdominal Pain ([facility]) Additional Instructions: follow up with your doctor as an outpatient return to the ED with worsening continue home medications as needed Forms: Elevated Blood Pressure Referrals: DIGNA BLANCO MD [Primary Care Provider] - Follow up as needed
[2019-06-12 12:08] LABS: ABSOLUTE MONOCYTES (AUTO) 0.7 10^3/uL (0.1-1.4); ABSOLUTE NEUT (AUTO) 2.3 10^3/uL (1.7-8.2); BASOPHILS % (AUTO) 0.5 % (0-2); EOSINOPHILS % (AUTO) 0.2 % (0-6); HEMATOCRIT 29.1 % (36.0-47.0); HEMOGLOBIN 9.7 g/dL (12.0-15.5); LYMPHOCYTES % (AUTO) 25.8 % (13-45); MEAN CORPUSCULAR HEMOGLOBIN 24.6 pg (27.0-33.4); MEAN CORPUSCULAR HGB CONC 33.5 g/dL (32.0-36.0); MEAN CORPUSCULAR VOLUME 74 fl (80-97); MONOCYTES % (AUTO) 16.2 % (3-13); PLATELET COUNT 118 10^3/uL (150-450); RED BLOOD COUNT 3.95 10^6/uL (3.72-5.28); RED CELL DISTRIBUTION WIDTH 18.1 % (11.5-14.0); SEGMENTED NEUTROPHILS % (AUTO) 57.3 % (42-78); TOTAL CELLS COUNTED % (AUTO) 100 %
[2019-06-12 12:32] LABS: INTERNATIONAL RATION (INR) 1.33; PROTHROMBIN TIME 16.6 SEC (11.4-15.4)
[2019-06-12 12:33] LABS: PARTIAL THROMBOPLASTIN TIME 32.2 SEC (23.5-35.8)
--- NOTE | 2019-06-12 13:03 | RADIOLOGY REPORT (SQ) ---
EXAM DESCRIPTION: U/S ABDOMEN LIMITED W/O DOP COMPLETED DATE/TIME: 06/12/2019 12:46 pm REASON FOR STUDY: Fluid Check COMPARISON: None. TECHNIQUE: Limited sonographic evaluation of the 4 abdominal quadrants was obtained for evaluation o f ascites. LIMITATIONS: None. FINDINGS: Limited sonographic evaluation of the abdomen was obtained for evaluation of ascites. The re is moderate volume upper abdominal ascites. Limited visualization of the liver demonstrates nodul ar hepatic contour. IMPRESSION: Moderate volume upper abdominal ascites. TECHNICAL DOCUMENTATION: JOB ID: [id number]- All Rights Reserved Reading location - IP/workstation name: [email or web address]
[2019-06-12 15:44] VITALS: BP 122/51
--- NOTE | 2019-06-12 16:03 | RADIOLOGY REPORT (SQ) ---
EXAM DESCRIPTION: U/S ABD PARACENTESIS COMPLETED DATE/TIME: 06/12/2019 3:47 pm REASON FOR STUDY: tense ascites COMPARISON: 06/12/2019 LIMITATIONS: None. PROCEDURE: Procedure, risks, benefit, and alternative explained to patient who then gave written con sent. The right upper quadrant abdominal wall marked using ultrasound guidance. A time-out was call ed for correct marking verification. Abdomen prepped and draped using sterile technique. Local anest hesia achieved using 10 ml of 1% lidocaine injection. A 6fr Inde-S-Osrlwsyz set was introduced into the peritoneal cavity. Fluid was drained. The catheter was removed and entry site was covered with sterile bandage. No immediate complications noted. Images acquired during the procedure were stored on PACS. FINDINGS: ENTRY SITE: Right upper quadrant FLUID VOLUME: 5 L FLUID ANALYSIS: Straw-colored OTHER: Therapeutic only. IMPRESSION: SUCCESSFUL ULTRASOUND GUIDED PARACENTESIS. COMMENT: Patient medication list reviewed:Yes- Quality ID# [id number]:Eligible professional attests to docu menting in the medical record they obtained, updated, or reviewed the patient's current medications. TECHNICAL DOCUMENTATION: JOB ID: [id number] [employer]- All Rights Reserved Reading location - IP/workstation name: [email or web address]
== END 2019-06-12 15:48 | disposition home or self-care (01) ==
LOC: ER 10:26
DX: I10 Essential (primary) hypertension (principal); R18.8 Other ascites
CPT/HCPCS: 36415; 49083; 76705; 85025; 85610; 85730; 99284

== ENCOUNTER 2019-07-08 21:26 | Emergency (ER) | payer MEDICARE ==
[2019-07-08 21:58] LABS: ABSOLUTE LYMPHOCYTES (AUTO) 1.1 10^3/uL (0.5-4.7); ABSOLUTE MONOCYTES (AUTO) 0.8 10^3/uL (0.1-1.4); ABSOLUTE NEUT (AUTO) 2.5 10^3/uL (1.7-8.2); BASOPHILS % (AUTO) 0.8 % (0-2); EOSINOPHILS % (AUTO) 0.2 % (0-6); HEMATOCRIT 28.2 % (36.0-47.0); HEMOGLOBIN 9.4 g/dL (12.0-15.5); LYMPHOCYTES % (AUTO) 24.7 % (13-45); MEAN CORPUSCULAR HEMOGLOBIN 24.3 pg (27.0-33.4); MEAN CORPUSCULAR HGB CONC 33.2 g/dL (32.0-36.0); MEAN CORPUSCULAR VOLUME 73 fl (80-97); MONOCYTES % (AUTO) 18.8 % (3-13); PLATELET COUNT 132 10^3/uL (150-450); RED BLOOD COUNT 3.85 10^6/uL (3.72-5.28); SEGMENTED NEUTROPHILS % (AUTO) 55.5 % (42-78); TOTAL CELLS COUNTED % (AUTO) 100 %; WHITE BLOOD COUNT 4.5 10^3/uL (4.0-10.5)
[2019-07-08 22:07] LABS: INTERNATIONAL RATION (INR) 1.29; PROTHROMBIN TIME 16.2 SEC (11.4-15.4)
[2019-07-08 22:08] LABS: PARTIAL THROMBOPLASTIN TIME 30.5 SEC (23.5-35.8)
[2019-07-08 22:16] LABS: ALBUMIN 3.2 g/dL (3.5-5.0); ALKALINE PHOSPHATASE 158 U/L (38-126); ANION GAP 12 (5-19); ASPARTATE AMINO TRANSFERASE 27 U/L (14-36); BILIRUBIN,DIRECT 0.1 mg/dL (0.0-0.4); BILIRUBIN,TOTAL 0.4 mg/dL (0.2-1.3); BLOOD UREA NITROGEN 22 mg/dL (7-20); CALCIUM 8.7 mg/dL (8.4-10.2); CARBON DIOXIDE 21 mmol/L (22-30); CHLORIDE 104 mmol/L (98-107); GLUCOSE 128 mg/dL (75-110); POTASSIUM 4.4 mmol/L (3.6-5.0); TOTAL PROTEIN 5.9 g/dL (6.3-8.2)
--- NOTE | 2019-07-08 22:16 | ER Document Report ---
ED General - General Chief Complaint: Abdominal Pain >50 Stated Complaint: ABDOMINAL PAIN Time Seen by Provider: 07/08/19 22:12 Primary Care Provider: DIGNA BLANCO MD [Primary Care Provider] - Follow up as needed TRAVEL OUTSIDE OF THE [place] IN LAST 30 DAYS: No - HPI Notes: 88-year-old female presents via EMS for evaluation of abdominal pain, nausea. Patient has a history of terminal liver cancer. Patient has been seen in the emergency department before for similar complaints and has had therapeutic paracentesis done. Patient received 50 mcg of fentanyl and 4 mg of Zofran IV with relief of symptoms. - Related Data Allergies/Adverse Reactions: No Known Allergies Allergy (Verified 06/12/19 10:54) Past Medical History - Social History Smoking Status: Never Smoker Family History: Reviewed & Not Pertinent Patient has suicidal ideation: No Patient has homicidal ideation: No - Past Medical History Cardiac Medical History: Reports: Hx Hypertension Denies: Hx Coronary Artery Disease, Hx Heart Attack Pulmonary Medical History: Denies: Hx Asthma, Hx Bronchitis, Hx COPD, Hx Pneumonia Neurological Medical History: Denies: Hx Cerebrovascular Accident, Hx Seizures Renal/ Medical History: Denies: Hx Peritoneal Dialysis Musculoskeletal Medical History: Reports Hx Arthritis Past Surgical History: Reports: Hx Hysterectomy - Immunizations Hx Diphtheria, Pertussis, Tetanus Vaccination: No Hx Pneumococcal Vaccination: 09/09/14 Review of Systems - Review of Systems Constitutional: No symptoms reported EENT: No symptoms reported Cardiovascular: No symptoms reported Respiratory: No symptoms reported Gastrointestinal: Abdomen distended, Abdominal pain, Nausea Genitourinary: No symptoms reported Female Genitourinary: No symptoms reported Musculoskeletal: No symptoms reported Skin: No symptoms reported Hematologic/Lymphatic: No symptoms reported Neurological/Psychological: No symptoms reported -: Yes All other systems reviewed and negative Physical Exam - Vital signs Vitals: Temp Resp BP Pulse Ox 98.6 F 19 117/73 95 07/08/19 21:37 07/08/19 21:37 07/08/19 21:37 07/08/19 21:37 - Notes Notes: PHYSICAL EXAMINATION: GENERAL: Chronically ill-appearing. Patient is in no acute distress at this time HEAD: Atraumatic, normocephalic. EYES: Pupils equal round and reactive to light, extraocular movements intact, sclera icteric, conjunctiva are normal. ENT: nares patent, oropharynx clear without exudates. Moist mucous membranes. NECK: Normal range of motion, supple without lymphadenopathy LUNGS: Breath sounds clear to auscultation bilaterally and equal. No wheezes rales or rhonchi. HEART: Regular rate and rhythm without murmurs ABDOMEN: Distended, nontender, normoactive bowel sounds. No guarding, no rebound. No masses appreciated. EXTREMITIES: Normal range of motion, no pitting or edema. No cyanosis. NEUROLOGICAL: No focal neurological deficits. Moves all extremities spontaneously and on command. PSYCH: Normal mood, normal affect. SKIN: Skin is mildly jaundiced Course - Re-evaluation Re-evalutation: 07/09/19 00:17 Patient is in no acute distress at this time 07/09/19 01:[address] Flannery. Patient has therapeutic paracentesis ordered for 8 AM this morning. - Vital Signs Vital signs: Temp Pulse Resp BP Pulse Ox 98.6 F 14 105/69 93 07/08/19 21:37 07/09/19 00:00 07/09/19 00:00 07/09/19 00:00 - Laboratory Result Diagrams: 07/08/19 21:45 07/08/19 21:45 Laboratory results interpreted by me: 07/08/19 07/08/19 07/08/19 21:45 21:45 21:45 Hgb 9.4 L Hct 28.2 L MCV 73 L MCH 24.3 L RDW 18.0 H Plt Count 132 L [place] % (Auto) 18.8 H PT 16.2 H Carbon Dioxide 21 L BUN 22 H Creatinine 1.58 H Est GFR ( Amer) 38 L Est GFR (MDRD) Non-Af 31 L Glucose 128 H Alkaline Phosphatase 158 H Total Protein 5.9 L Albumin 3.2 L Urine Ketones Ur Leukocyte Esterase Urine Ascorbic Acid 07/08/19 22:38 Hgb Hct MCV MCH RDW Plt Count [place] % (Auto) PT Carbon Dioxide BUN Creatinine Est GFR ( Amer) Est GFR (MDRD) Non-Af Glucose Alkaline Phosphatase Total Protein Albumin Urine Ketones TRACE H Ur Leukocyte Esterase TRACE H Urine Ascorbic Acid 40 H Discharge - Discharge Clinical Impression: Ascites Condition: Fair Disposition: HOME, SELF-CARE Referrals: DIGNA BLANCO MD [Primary Care Provider] - Follow up as needed
[2019-07-08 22:58] LABS: APPEARANCE,URINE SLIGHTLY-CLOUDY; BILIRUBIN,URINE NEGATIVE (NEGATIVE); COLOR,URINE YELLOW; GLUCOSE, URINE NEGATIVE (NEGATIVE); KETONES,URINE TRACE mg/dL (NEGATIVE); LEUKOCYTE ESTERASE,URINE TRACE (NEGATIVE); NITRITE,URINE NEGATIVE (NEGATIVE); PROTEIN,URINE NEGATIVE (NEGATIVE); URINE SPECIFIC GRAVITY 1.017; UROBILINOGEN,URINE NEGATIVE mg/dL (<2.0)
[2019-07-09] MEDS ORDERED: DIPHENHYDRAMINE HCL 50 MG/ML VIAL IV ONE (01:08)
--- NOTE | 2019-07-09 10:23 | RADIOLOGY REPORT (SQ) ---
EXAM DESCRIPTION: U/S ABD PARACENTESIS COMPLETED DATE/TIME: 07/09/2019 9:58 am REASON FOR STUDY: therapeutic paracentesis, terminal liver ca COMPARISON: None. LIMITATIONS: None. PROCEDURE: Procedure, risks, benefit, and alternative explained to patient who then gave written con sent. The left lower quadrant abdominal wall marked using ultrasound guidance. A time-out was resendez d for correct marking verification. Abdomen prepped and draped using sterile technique. Local anesth esia achieved using 3.5 ml of 1% lidocaine injection. A 6fr Zimz-R-Ifvygdvm set was introduced into the peritoneal cavity. Fluid was drained. The catheter was removed and entry site was covered with sterile bandage. No immediate complications noted. Images acquired during the procedure were stored on PACS. FINDINGS: ENTRY SITE: Left lower quadrant. FLUID VOLUME: 5000 cc FLUID ANALYSIS: Straw OTHER: Therapeutic only. IMPRESSION: SUCCESSFUL ULTRASOUND GUIDED PARACENTESIS. COMMENT: Patient medication list reviewed:Yes- Quality ID# [id number]:Eligible professional attests to docu menting in the medical record they obtained, updated, or reviewed the patient's current medications. TECHNICAL DOCUMENTATION: JOB ID: [id number] [employer]- All Rights Reserved Reading location - IP/workstation name: [email or web address]
[2019-07-09 10:26] VITALS: BP 111/60
== END 2019-07-09 10:26 | disposition home or self-care (01) ==
LOC: ER 21:26
DX: R18.8 Other ascites (principal); K42.9 Umbilical hernia without obstruction or gangrene; R10.9 Unspecified abdominal pain; R11.0 Nausea; Z85.05 Personal history of malignant neoplasm of liver; I10 Essential (primary) hypertension
CPT/HCPCS: 36415; 82140; 83690; 85025; 85610; 85730; 80053; 81001; 49083; J1200; 96374; 99284

== ENCOUNTER 2019-07-10 14:47 | Emergency (ER) | payer MEDICARE ==
--- NOTE | 2019-07-10 15:02 | ER Document Report ---
ED Medical Screen (RME) - General Chief Complaint: Blood Pressure Problem Stated Complaint: BLOOD PRESSURE PROBLEMS Time Seen by Provider: 07/10/19 14:56 Primary Care Provider: DIGNA BLANCO MD [Primary Care Provider] - Follow up as needed Mode of Arrival: Wheelchair Notes: 88-year-old female presents to ED for complaint of low blood pressure. Son states he took her blood pressure at home and the first time it was 76/52. He states he rechecked it and it was 72/58. The third time he checked and it was 72/52 so he brought her to the emergency room. Patient states she was lighthe aded and dizzy while at home but she is not at this time. She states she was just discharged after she had a paracentesis for ascites. She has the ascites from liver cancer and cirrhosis. I have greeted and performed a rapid initial assessment of this patient. A comprehensive ED assessment and evaluation of the patient, analysis of test results and completion of medical decision making process will be conducted by an additional ED providers. TRAVEL OUTSIDE OF THE [place] IN LAST 30 DAYS: No - Related Data Allergies/Adverse Reactions: No Known Allergies Allergy (Verified 06/12/19 10:54) Past Medical History - Past Medical History Cardiac Medical History: Reports: Hx Hypertension Denies: Hx Coronary Artery Disease, Hx Heart Attack Pulmonary Medical History: Denies: Hx Asthma, Hx Bronchitis, Hx COPD, Hx Pneumonia Neurological Medical History: Denies: Hx Cerebrovascular Accident, Hx Seizures Renal/ Medical History: Denies: Hx Peritoneal Dialysis Musculoskeltal Medical History: Reports Hx Arthritis Past Surgical History: Reports: Hx Hysterectomy - Immunizations Hx Diphtheria, Pertussis, Tetanus Vaccination: No Doctor's Discharge - Discharge Referrals: DIGNA BLANCO MD [Primary Care Provider] - Follow up as needed
--- NOTE | 2019-07-10 15:41 | ER Document Report ---
ED General - General Chief Complaint: Blood Pressure Problem Stated Complaint: BLOOD PRESSURE PROBLEMS Time Seen by Provider: 07/10/19 14:56 Primary Care Provider: DIGNA BLANCO MD [Primary Care Provider] - Follow up as needed Mode of Arrival: Wheelchair TRAVEL OUTSIDE OF THE [place] IN LAST 30 DAYS: No - HPI Notes: Mrs. Chavez is an 88-year-old female resenting with a chief complaint of low blood pressure. The patient has a history of hepatic carcinoma and was discharged from the hospital here within the last 24 hours after having removal of 5 L of ascites by paracentesis. Patient felt well at the time of discharge. She remained asymptomatic this morning but usually checks her blood pressure at home and became concerned when she consistently got systolic values in the 70s. Patient denies syncope or presyncope although she states she was slightly "lightheaded" earlier today. She denies fever chills diarrhea nausea vomiting. - Related Data Allergies/Adverse Reactions: No Known Allergies Allergy (Verified 06/12/19 10:54) Past Medical History - Social History Smoking Status: Never Smoker Chew tobacco use (# tins/day): No Frequency of alcohol use: None Drug Abuse: None Family History: Reviewed & Not Pertinent Patient has suicidal ideation: No Patient has homicidal ideation: No - Past Medical History Cardiac Medical History: Reports: Hx Hypertension Denies: Hx Coronary Artery Disease, Hx Heart Attack Pulmonary Medical History: Denies: Hx Asthma, Hx Bronchitis, Hx COPD, Hx Pneumonia Neurological Medical History: Denies: Hx Cerebrovascular Accident, Hx Seizures Renal/ Medical History: Denies: Hx Peritoneal Dialysis Musculoskeletal Medical History: Reports Hx Arthritis Past Surgical History: Reports: Hx Hysterectomy - Immunizations Hx Diphtheria, Pertussis, Tetanus Vaccination: No Hx Pneumococcal Vaccination: 09/09/14 Review of Systems - Review of Systems Notes: Constitutional: Negative for fever. HENT: Negative for sore throat. Eyes: Negative for visual changes. Cardiovascular: Negative for chest pain. Respiratory: Negative for shortness of breath. Gastrointestinal: Negative for abdominal pain, vomiting or diarrhea. Genitourinary: Negative for dysuria. Musculoskeletal: Negative for back pain. Skin: Negative for rash. Neurological: Negative for headaches. 10 point ROS negative except as marked above and in HPI. Physical Exam - Vital signs Vitals: Temp Pulse Resp BP Pulse Ox 98.0 F 74 16 111/56 L 100 07/10/19 14:58 07/10/19 14:58 07/10/19 14:58 07/10/19 14:58 07/10/19 14:58 - Rectal Notes: GENERAL: Somewhat chronically ill appearing elderly female in no acute distress. SKIN: Good turgor no rashes. HEAD: Normocephalic atraumatic. EYES: PERRLA. Conjunctivae and sclerae clear. EARS: CANALS AND TMS CLEAR. Mild bilateral hearing impairment. NOSE: CLEAR. MOUTH: Moist mucosa. Good dentition. No stridor or edema. No drooling. NECK: Supple. No masses or thyromegaly. No adenopathy. Carotids 2+ without bruits. No JVD. BACK: Symmetrical without tenderness. CHEST: Respirations unlabored. Breath sounds clear and symmetrical. HEART: Regular rhythm. No murmur gallop or rub. ABDOMEN: Soft nontender without masses, organomegaly or rebound. Bowel sounds normally active. No bruits. Mild ascites present. GENITALIA: Deferred. EXTREMITIES: No edema. No calf tenderness. Cap refill less than 1.5 seconds. Dorsalis pedis and posterior tibial pulses 3+ and symmetrical. NEUROLOGICAL: GCS 15. Alert and oriented x3. Normal gait. Fluent speech. Cranial nerves II through XII intact. Sensorimotor and cerebellar normal. Normal tone. No asterixis. Course - Vital Signs Vital signs: Temp Pulse Resp BP Pulse Ox 98.0 F 74 16 111/56 L 100 07/10/19 14:58 07/10/19 14:58 07/10/19 14:58 07/10/19 14:58 07/10/19 14:58 - Laboratory Result Diagrams: 07/10/19 16:18 07/10/19 16:18 Discharge - Discharge Clinical Impression: G-tube replacement Clinical Impression: (Ruled Out): Condition: Stable Disposition: HOME, SELF-CARE Referrals: DIGNA BLANCO MD [Primary Care Provider] - Follow up as needed
[2019-07-10 16:31] LABS: ABSOLUTE LYMPHOCYTES (AUTO) 1.2 10^3/uL (0.5-4.7); ABSOLUTE MONOCYTES (AUTO) 0.9 10^3/uL (0.1-1.4); ABSOLUTE NEUT (AUTO) 2.5 10^3/uL (1.7-8.2); BASOPHILS % (AUTO) 0.5 % (0-2); EOSINOPHILS % (AUTO) 0.2 % (0-6); HEMATOCRIT 28.9 % (36.0-47.0); HEMOGLOBIN 9.6 g/dL (12.0-15.5); LYMPHOCYTES % (AUTO) 25.3 % (13-45); MEAN CORPUSCULAR HEMOGLOBIN 24.3 pg (27.0-33.4); MEAN CORPUSCULAR VOLUME 74 fl (80-97); MONOCYTES % (AUTO) 18.9 % (3-13); PLATELET COUNT 125 10^3/uL (150-450); RED BLOOD COUNT 3.93 10^6/uL (3.72-5.28); RED CELL DISTRIBUTION WIDTH 17.9 % (11.5-14.0); SEGMENTED NEUTROPHILS % (AUTO) 55.1 % (42-78); TOTAL CELLS COUNTED % (AUTO) 100 %; WHITE BLOOD COUNT 4.6 10^3/uL (4.0-10.5)
[2019-07-10 16:47] LABS: ALBUMIN 3.2 g/dL (3.5-5.0); ALKALINE PHOSPHATASE 144 U/L (38-126); ANION GAP 7 (5-19); ASPARTATE AMINO TRANSFERASE 30 U/L (14-36); BILIRUBIN,DIRECT 0.2 mg/dL (0.0-0.4); BILIRUBIN,TOTAL 0.6 mg/dL (0.2-1.3); BLOOD UREA NITROGEN 19 mg/dL (7-20); CALCIUM 8.9 mg/dL (8.4-10.2); CARBON DIOXIDE 25 mmol/L (22-30); CHLORIDE 102 mmol/L (98-107); GLUCOSE 113 mg/dL (75-110); POTASSIUM 4.5 mmol/L (3.6-5.0); TOTAL PROTEIN 5.9 g/dL (6.3-8.2)
[2019-07-10 17:29] VITALS: BP 97/58
== END 2019-07-10 18:20 | disposition home or self-care (01) ==
LOC: ER 14:47
DX: I95.81 Postprocedural hypotension (principal); R18.8 Other ascites; I10 Essential (primary) hypertension
CPT/HCPCS: 36415; 80053; 83690; 85025; 99283

== ENCOUNTER 2019-08-05 00:21 | Observation (INO) | payer MEDICARE ==
[2019-08-05 01:06] LABS: ALBUMIN 4.3 g/dL (3.5-5.0); ALKALINE PHOSPHATASE 177 U/L (38-126); ANION GAP 14 (5-19); ASPARTATE AMINO TRANSFERASE 41 U/L (14-36); BILIRUBIN,DIRECT 0.2 mg/dL (0.0-0.4); BILIRUBIN,TOTAL 0.5 mg/dL (0.2-1.3); BLOOD UREA NITROGEN 31 mg/dL (7-20); CALCIUM 10.2 mg/dL (8.4-10.2); CARBON DIOXIDE 18 mmol/L (22-30); CHLORIDE 106 mmol/L (98-107); GLUCOSE 126 mg/dL (75-110); POTASSIUM 5.1 mmol/L (3.6-5.0); TOTAL PROTEIN 7.7 g/dL (6.3-8.2)
[2019-08-05 01:13] LABS: HEMATOCRIT 23.6 % (36.0-47.0); MEAN CORPUSCULAR HEMOGLOBIN 24.1 pg (27.0-33.4); MEAN CORPUSCULAR HGB CONC 32.9 g/dL (32.0-36.0); MEAN CORPUSCULAR VOLUME 73 fl (80-97); RED BLOOD COUNT 3.23 10^6/uL (3.72-5.28); RED CELL DISTRIBUTION WIDTH 17.5 % (11.5-14.0); WHITE BLOOD COUNT 2.5 10^3/uL (4.0-10.5)
[2019-08-05 01:18] LABS: PLATELET COUNT 86 10^3/uL (150-450)
[2019-08-05 01:37] LABS: ABSOLUTE LYMPHOCYTES# (MANUAL) 0.4 10^3/uL (0.5-4.7); ABSOLUTE MONOCYTES # (MANUAL) 0.5 10^3/uL (0.1-1.4); BASOPHILS % (MANUAL) 0 % (0-2); EOSINOPHILS % (MANUAL) 0 % (0-6); LYMPHOCYTES % (MANUAL) 15 % (13-45); MONOCYTES % (MANUAL) 18 % (3-13); SEGMENTED NEUTROPHILS % (MAN) 67 % (42-78); TOTAL CELLS COUNTED 100
[2019-08-05 01:40] LABS: ANISOCYTOSIS 2+; BURR CELLS 2+; OVALOCYTES 1+; PLATELET COMMENT DECREASED; POIKILOCYTOSIS 2+; SCHISTOCYTES SLIGHT; TEAR DROP CELLS SLIGHT
[2019-08-05 01:42] LABS: HEMOGLOBIN 7.8 g/dL (12.0-15.5)
[2019-08-05] MEDS ORDERED: NORMAL SALINE 1000 ML 1,000 ML IV ONE (01:57)
[2019-08-05] MEDS ORDERED: FENTANYL CITRATE INJ/PF 100 MCG/2 ML AMPUL IV ONE (01:57)
[2019-08-05] MEDS ORDERED: ONDANSETRON HCL INJ/PF 4 MG/2 ML SDV IV ONE (01:57)
--- NOTE | 2019-08-05 01:59 | ER Document Report ---
ED GI/ - General Chief Complaint: Abdominal Pain Stated Complaint: ABDOMINAL PAIN Time Seen by Provider: 08/05/19 01:49 Notes: Patient is an 88-year-old female that comes to the emergency department for chief complaint of sharp mid to upper abdominal pain and dry heaving that started tonight. She states pain is very sharp. She states she has an appointment with her primary care provider today but she could not bear the pain so she came in. She denies fever, chest pain. She states her only other symptom is when she stands she gets lightheaded. She does not take any pain medications. She states she is diagnosed with the likely diagnosis of liver cancer and abdominal ascites but she has not had any testing done or staging because she basically does not want to know. She states she has decided she does not want chemotherapy, radiation, or surgery. She states if there is a "easy fix" she is interested but she does not want to be given details about cancer by her personal choice. She has a history of hypertension and hystere ctomy, denies medical history otherwise. She lives at home with her family. TRAVEL OUTSIDE OF THE [place] IN LAST 30 DAYS: No - Related Data Allergies/Adverse Reactions: No Known Allergies Allergy (Verified 06/12/19 10:54) Home Medications: Metoprolol. Oxtbutynin. Spironolactone. Losartan. Melatonin. Lasix Past Medical History - General Information source: Patient - Social History Smoking Status: Never Smoker Chew tobacco use (# tins/day): No Frequency of alcohol use: Former Alcoholic Drug Abuse: None Lives with: Family Family History: Reviewed & Not Pertinent Patient has suicidal ideation: No Patient has homicidal ideation: No - Past Medical History Cardiac Medical History: Reports: Hx Hypertension Denies: Hx Coronary Artery Disease, Hx Heart Attack Pulmonary Medical History: Denies: Hx Asthma, Hx Bronchitis, Hx COPD, Hx Pneumonia Neurological Medical History: Denies: Hx Cerebrovascular Accident, Hx Seizures Renal/ Medical History: Denies: Hx Peritoneal Dialysis Musculoskeletal Medical History: Reports Hx Arthritis Past Surgical History: Reports: Hx Hysterectomy - Immunizations Hx Diphtheria, Pertussis, Tetanus Vaccination: No Hx Pneumococcal Vaccination: 09/09/14 Review of Systems - Review of Systems Constitutional: See HPI EENT: No symptoms reported Cardiovascular: See HPI Respiratory: No symptoms reported Gastrointestinal: See HPI Genitourinary: No symptoms reported Female Genitourinary: No symptoms reported Musculoskeletal: No symptoms reported Skin: No symptoms reported Hematologic/Lymphatic: No symptoms reported Neurological/Psychological: No symptoms reported Physical Exam - Vital signs Vitals: Temp Pulse Resp BP Pulse Ox 98.2 F 89 17 134/74 H 99 08/05/19 01:00 08/05/19 01:00 08/05/19 01:00 08/05/19 01:00 08/05/19 01:00 - Notes Notes: GENERAL: Somewhat frail and chronically ill-appearing HEAD: Normocephalic, atraumatic. EYES: Pupils equal, round, and reactive to light. Extraocular movements intact. ENT: Oral mucosa moist, tongue midline. Oropharynx unremarkable. Airway patent. NECK: Full range of motion. Supple. Trachea midline. LUNGS: Clear to auscultation bilaterally, no wheezes, rales, or rhonchi. No respiratory distress. HEART: Regular rate and rhythm. ABDOMEN: She feels like something crawling that she is she is right upper quadrant and epigastric tenderness which is reproducible. Remaining abdomen seems benign. No overt ascites or swelling. GENITOURINARY: Deferred EXTREMITIES: Moves all 4 extremities spontaneously. No edema, normal radial and dorsalis pedis pulses bilaterally. No cyanosis. BACK: no cervical, thoracic, lumbar midline tenderness. No saddle anesthesia, normal distal neurovascular exam. Moves all extremities in full range of motion. NEUROLOGICAL: Alert and oriented x3. Normal speech. Cranial nerves II through XII grossly intact. PSYCH: Normal affect, normal mood. SKIN: Warm, dry, normal turgor. No rashes or lesions noted. Course - Re-evaluation Re-evalutation: Patient has epigastric and right upper quadrant tenderness on exam, vital signs unremarkable, patient appears chronically ill but not in severe distress. CBC shows leukopenia, hemoglobin is low at 7.8 which is decreased from prior, patient is also symptomatic from this with dizziness when standing. She denies blood in the stool. Transfusing for symptomatic anemia. Chemistry nonspecific, urinalysis unremarkable. CAT scan showing probable liver cancer with possible metastasis. Also shows borderline gallbladder. Nonspecific otherwise. Concern for possible developing cholecystitis based on patient's presentation. Patient has been discussed with Dr. Segovia. Ultrasound showing gallbladder wall thickening with positive Simmons sign, possible cholecystitis. No signs of obstruction on lab or obviously on ultra sound. I discussed at length with patient. She states she will not be interested in surgery, she did not want to me to tell her anything about her cancer status and she prefers simply not to now, she does agree to medical management of possible cholecystitis and she was very pleased about the [facility]. I discussed with Dr. Segovia again. Discussed with Dr. Zarate, general surgery, he states he will consult on the patient and he recommends medical admission. Discussed with Mr. Villarreal CAN TESTER, patient accepted to the hospitalist service. Patient states understanding and agreement. - Vital Signs Vital signs: Temp Pulse Resp BP Pulse Ox 97.7 F 84 18 101/56 L 100 08/05/19 07:01 08/05/19 07:01 08/05/19 07:01 08/05/19 07:01 08/05/19 07:01 - Laboratory Result Diagrams: 08/05/19 00:55 08/04/19 23:50 Laboratory results interpreted by me: 08/04/19 08/05/19 08/05/19 23:50 00:55 02:28 WBC 2.5 L RBC 3.23 L Hgb 7.8 L Hct 23.6 L MCV 73 L MCH 24.1 L RDW 17.5 H Plt Count 86 L Monocytes % (Manual) 18 H Abs Lymphs (Manual) 0.4 L Potassium 5.1 H Carbon Dioxide 18 L BUN 31 H Creatinine 1.64 H Est GFR ( Amer) 36 L Est GFR (MDRD) Non-Af 30 L Glucose 126 H AST 41 H Alkaline Phosphatase 177 H Urine Glucose (UA) 50 H Urine Ketones TRACE H Urine Blood SMALL H Crossmatch 08/05/19 05:34 WBC RBC Hgb Hct MCV MCH RDW Plt Count Monocytes % (Manual) Abs Lymphs (Manual) Potassium Carbon Dioxide BUN Creatinine Est GFR ( Amer) Est GFR (MDRD) Non-Af Glucose AST Alkaline Phosphatase Urine Glucose (UA) Urine Ketones Urine Blood Crossmatch See Detail Discharge - Discharge Clinical Impression: Epigastric pain, Symptomatic anemia, Cholecystitis Vomiting Qualifiers: Vomiting type: unspecified Vomiting Intractability: non-intractable Nausea presence: with nausea Qualified Code(s): R11.2 - Nausea with vomiting, unspecified Liver cancer Qualifiers: Liver malignancy type: unspecified liver malignancy Qualified Code(s): C22.9 - Malignant neoplasm of liver, not specified as primary or secondary Condition: Stable Disposition: ADMITTED INPATIENT Admitting Provider: Zana Villarreal NP Unit Admitted: Telemetry
[2019-08-05 03:35] LABS: APPEARANCE,URINE CLEAR; BILIRUBIN,URINE NEGATIVE (NEGATIVE); COLOR,URINE YELLOW; GLUCOSE, URINE 50 mg/dL (NEGATIVE); KETONES,URINE TRACE mg/dL (NEGATIVE); LEUKOCYTE ESTERASE,URINE NEGATIVE (NEGATIVE); NITRITE,URINE NEGATIVE (NEGATIVE); PROTEIN,URINE NEGATIVE (NEGATIVE); URINE SPECIFIC GRAVITY 1.011; UROBILINOGEN,URINE NEGATIVE mg/dL (<2.0)
[2019-08-05] MEDS ORDERED: MORPHINE SULFATE 10 MG/ML INJ IV ONE (03:38)
--- NOTE | 2019-08-05 03:40 | RADIOLOGY REPORT (SQ) ---
EXAM DESCRIPTION: CT ABDOMEN PELVIS WITH IV CONTRAST COMPLETED DATE/TME: 08/05/2019 01:58 CLINICAL HISTORY: abd pain, vomiting. COMPARISON: 09/13/2017 TECHNIQUE: CT of the abdomen and pelvis performed following IV administration of 62 mL of Omnipaque 350. FINDINGS: Lung Bases: Mild bibasilar dependent atelectasis. Bones: Multilevel degenerative endplate spondylosis and facet arthropathy. Abdomen: Liver: Nodular contour of the liver. Interval development of 2 hyperenhancing nodules in the right hepatic lobe, the largest is in hepatic segment VII and measures 1.6 x 1.2 cm in greatest axial dimensions. Gallbladder: Distended gallbladder with cholelithiasis. There is a single small stone in the region of the gallbladder neck/cystic duct. Spleen, Pancreas, and Adrenal Glands: The spleen and adrenal glands are unremarkable. Punctate calcification in the pancreas are stable. Kidneys: The kidneys have normal size without evidence of solid mass or hydronephrosis. Multiple right renal cysts. Vasculature: Aortoiliac atherosclerosis. IVC is unremarkable. The portal vein is patent. The proximal visceral and renal arteries are patent. Stomach: The stomach and duodenum have normal course. Other: No free intraperitoneal air. Fat and fluid containing ventral hernia. Moderate amount of ascites. Pelvis: Bladder: Urinary bladder is unremarkable. Bowel: No dilated loops of large or small bowel. Appendix: Not identified. Pelvis: Prior hysterectomy. IMPRESSION: 1. Cholelithiasis and gallbladder distention. If there is concern for acute cholecystitis right upper quadrant ultrasound or nuclear medicine biliary study may provide additional characterization. 2. Findings compatible with cirrhosis and moderate volume ascites. 3. Interval development of 2 indeterminate hypoenhancing lesions in the right hepatic lobe, the largest is in the posterior right hepatic lobe measuring 1.6 cm in greatest dimension. Differential considerations include dysplastic nodules, hepatocellular carcinoma, and metastatic lesions. Correlation with multiphase hepatic protocol CT/MRI of the abdomen recommended for more complete characterization. This exam was performed according to our departmental dose-optimization program, which includes automated exposure control, adjustment of the mA and/or kV according to patient size and/or use of iterative reconstruction technique.
[2019-08-05] MEDS ORDERED: NORMAL SALINE 250 ML IV PRN ×2 (04:51)
--- NOTE | 2019-08-05 05:56 | RADIOLOGY REPORT (SQ) ---
CLINICAL HISTORY: epigastric pain, vomiting COMPARISON: None. TECHNIQUE: US ABDOMEN LIMITED on 08/05/2019 4:35 AM RECRUITING AND SELECTION CONSULTANT FINDINGS: Liver is borderline in size containing a 3 cm indeterminate hypoechoic lesion anteriorly. Portal vein is patent. Gallbladder contains multiple gallstones with the the wall measuring 7 mm. There is a positive sonographic Simmons sign. Common bile duct measures 6 mm. Right kidney measures 8.8 cm and contains a upper pole cyst measuring 1.7 cm. IMPRESSION: Cholelithiasis with gallbladder wall thickening and positive sonographic Simmons sign. Acute cholecystitis is not excluded.
[2019-08-05] MEDS ORDERED: PIPERACILLIN/TAZOBACTAM 3.375 GM VIAL IV ONE (06:26)
[2019-08-05] MEDS ORDERED: ONDANSETRON HCL INJ/PF 4 MG/2 ML SDV IV PRN (07:47)
[2019-08-05] MEDS ORDERED: ACETAMINOPHEN 325 MG TABLET PO PRN (07:47)
[2019-08-05] MEDS ORDERED: MAG HYDROX/AL HYDROX/SIMETH SUSP 30 ML UDCUP PO PRN (07:47)
[2019-08-05] MEDS ORDERED: OXYCODONE-ACETAMINOPHEN 5-325 MG TABLET PO PRN (07:47)
[2019-08-05] MEDS ORDERED: ZOLPIDEM TARTRATE 5 MG TABLET PO PRN (07:47)
[2019-08-05] MEDS ORDERED: GLUCAGON,HUMAN RECOMB 1 MG INJ IM PRN (07:55)
[2019-08-05] MEDS ORDERED: DEXTROSE 40% GEL 15 GM TUBE PO PRN ×2 (07:55)
[2019-08-05] MEDS ORDERED: DEXTROSE 50%-WATER 25 GM/50 ML DISP.SYRIN IV PRN ×2 (07:55)
--- NOTE | 2019-08-05 07:56 | PDOC H&P ---
History of Present Illness Admission Date/PCP: 08/05/19 07:42 DIGNA BLANCO MD Patient complains of: Nausea and vomiting History of Present Illness: VALENTINA PARIS is a 88 year old female with a history of liver cancer presents to the emergency department with nausea abdominal pain that started last night. Patient states pain is very sharp in nature and that she had a point with her primary care today but could not bear the pain. She denied any fevers or chills or other associated signs or symptoms. Patient states she does not take any medications and she does not want treated for anything related to her cancer. She does not want chemotherapy, radiation or surgery. Said no treatment prior to arrival all oral intake been aggravating factor Past Medical History Cardiac Medical History: Reports: Hypertension Denies: Coronary Artery Disease, Myocardial Infarction Pulmonary Medical History: Denies: Asthma, Bronchitis, Chronic Obstructive Pulmonary Disease (COPD), Pneumonia Neurological Medical History: Denies: Seizures Musculoskeltal Medical History: Reports: Arthritis Hematology: Denies: Anemia Past Surgical History Past Surgical History: Reports: Hysterectomy Social History Information Source: Patient Lives with: Family Smoking Status: Never Smoker Electronic Cigarette use?: No Frequency of Alcohol Use: None - until stopped last year. Known to have Cirrhosis of the liver. Being followed by zig [facility] st[facility] Dr Wu for this. Also known to have low platelet count. Hx Recreational Drug Use: No Drugs: None Hx Prescription Drug Abuse: No - Advance Directive Resuscitation Status: Do Not Resuscitate Family History Family History: Hypertension Parental Family History Reviewed: Yes Children Family History Reviewed: Yes Sibling(s) Family History Reviewed.: Yes Medication/Allergy Allergies/Adverse Reactions: No Known Allergies Allergy (Verified 06/12/19 10:54) Review of Systems Constitutional: ABSENT: chills, fever(s), headache(s), weight gain, weight loss Eyes: ABSENT: visual disturbances Ears: ABSENT: hearing changes Cardiovascular: ABSENT: chest pain, dyspnea on exertion, edema, orthropnea, palpitations Respiratory: ABSENT: cough, hemoptysis Gastrointestinal: PRESENT: abdominal pain, nausea, vomiting. ABSENT: constipation, diarrhea, hematemesis, hematochezia Genitourinary: ABSENT: dysuria, hematuria Musculoskeletal: ABSENT: joint swelling Integumentary: ABSENT: rash, wounds Neurological: ABSENT: abnormal gait, abnormal speech, confusion, dizziness, focal weakness, syncope Psychiatric: ABSENT: anxiety, depression, homidical ideation, suicidal ideation Endocrine: ABSENT: cold intolerance, heat intolerance, polydipsia, polyuria Hematologic/Lymphatic: ABSENT: easy bleeding, easy bruising Physical Exam Vital Signs: Temp Pulse Resp BP Pulse Ox 97.7 F 84 18 101/56 L 100 08/05/19 07:01 08/05/19 07:01 08/05/19 07:01 08/05/19 07:01 08/05/19 07:01 Intake & Output 08/04/19 08/05/19 08/06/19 06:59 06:59 06:59 Intake Total 1000 Balance 1000 Weight 53.977 kg General appearance: PRESENT: no acute distress, well-developed, well-nourished Head exam: PRESENT: atraumatic, normocephalic Eye exam: PRESENT: conjunctiva pink, EOMI, PERRLA. ABSENT: scleral icterus Ear exam: PRESENT: normal external ear exam Mouth exam: PRESENT: moist, tongue midline Neck exam: ABSENT: carotid bruit, JVD, lymphadenopathy, thyromegaly Respiratory exam: PRESENT: clear to auscultation ira. ABSENT: rales, rhonchi, wheezes Cardiovascular exam: PRESENT: RRR. ABSENT: diastolic murmur, rubs, systolic murmur Pulses: PRESENT: normal dorsalis pedis pul Vascular exam: PRESENT: normal capillary refill GI/Abdominal exam: PRESENT: hyperactive bowel sounds, soft, tenderness. ABSENT: distended, guarding, mass, organolmegaly, rebound Rectal exam: PRESENT: deferred Extremities exam: PRESENT: full ROM. ABSENT: calf tenderness, clubbing, pedal edema Neurological exam: PRESENT: alert, awake, oriented to person, oriented to place, oriented to time, oriented to situation, CN II-XII grossly intact. ABSENT: motor sensory deficit Psychiatric exam: PRESENT: appropriate affect, normal mood. ABSENT: homicidal ideation, suicidal ideation Skin exam: PRESENT: dry, intact, warm. ABSENT: cyanosis, rash Results Laboratory Results: 08/05/19 00:55 08/04/19 23:50 08/04/19 08/05/19 08/05/19 23:50 00:55 02:28 WBC 2.5 L RBC 3.23 L Hgb 7.8 L Hct 23.6 L MCV 73 L MCH 24.1 L MCHC 32.9 RDW 17.5 H Plt Count 86 L Seg Neutrophils % Not Reportable Sodium 137.6 Potassium 5.1 H Chloride 106 Carbon Dioxide 18 L Anion Gap 14 BUN 31 H Creatinine 1.64 H Est GFR ( Amer) 36 L Glucose 126 H Calcium 10.2 Total Bilirubin 0.5 AST 41 H Alkaline Phosphatase 177 H Total Protein 7.7 Albumin 4.3 Lipase 275.5 Urine Color YELLOW Urine Appearance CLEAR Urine pH 5.0 Ur Specific [place] 1.011 Urine Protein NEGATIVE Urine Glucose (UA) 50 H Urine Ketones TRACE H Urine Blood SMALL H Urine Nitrite NEGATIVE Ur Leukocyte Esterase NEGATIVE Urine WBC (Auto) 2 Urine RBC (Auto) 1 Blood Type Antibody Screen 08/05/19 05:34 WBC RBC Hgb Hct MCV MCH MCHC RDW Plt Count Seg Neutrophils % Sodium Potassium Chloride Carbon Dioxide Anion Gap BUN Creatinine Est GFR ( Amer) Glucose Calcium Total Bilirubin AST Alkaline Phosphatase Total Protein Albumin Lipase Urine Color Urine Appearance Urine pH Ur Specific [place] Urine Protein Urine Glucose (UA) Urine Ketones Urine Blood Urine Nitrite Ur Leukocyte Esterase Urine WBC (Auto) Urine RBC (Auto) Blood Type A POSITIVE Antibody Screen NEGATIVE Impressions: Abdomen/Pelvis CT 08/05/19 01:58 IMPRESSION: 1. Cholelithiasis and gallbladder distention. If there is concern for acute cholecystitis right upper quadrant ultrasound or nuclear medicine biliary study may provide additional characterization. 2. Findings compatible with cirrhosis and moderate volume ascites. 3. Interval development of 2 indeterminate hypoenhancing lesions in the right hepatic lobe, the largest is in the posterior right hepatic lobe measuring 1.6 cm in greatest dimension. Differential considerations include dysplastic nodules, hepatocellular carcinoma, and metastatic lesions. Correlation with multiphase hepatic protocol CT/MRI of the abdomen recommended for more complete characterization. This exam was performed according to our departmental dose-optimization program, which includes automated exposure control, adjustment of the mA and/or kV according to patient size and/or use of iterative reconstruction technique. Abdomen Ultrasound 08/05/19 04:35 IMPRESSION: Cholelithiasis with gallbladder wall thickening and positive sonographic Simmons sign. Acute cholecystitis is not excluded. Assessment and Plan - Diagnosis (1) Intractable nausea and vomiting Is this a current diagnosis for this admission?: Yes Plan: 08/05/2019-admit to medical surgical. Clear liquids. Zofran 4 mg IV every 4 hours as needed. Will follow and make adjustments based on patient needs. (2) Acute kidney injury Is this a current diagnosis for this admission?: Yes Plan: 08/05/2019-patient receiving 1 unit of packed cells in the ER. Will continue no rmal saline at 100 mL an hour and repeat BMP in the a.m. (3) Anemia Is this a current diagnosis for this admission?: Yes Plan: 08/05/2019-patient had a hemoglobin of 7.8 in the ER and slight dizziness so she received 1 unit packed cells. This anemia is probably chronic secondary to her liver cancer. Will follow with CBC in the a.m. (4) Hyperglycemia Is this a current diagnosis for this admission?: Yes Plan: 08/05/2019-A1c in a.m. Sliding scale insulin before meals and at bedtime with clear liquid diet. (5) Hyperkalemia Is this a current diagnosis for this admission?: Yes Plan: 08/05/2019-mild at this time. Potassium 5.1. Hydrate repeat BMP in a.m. - Time Time Spent with patient: 35 or more minutes
[2019-08-05] MEDS: INSULIN REG, HUMAN 100 UNIT/ML 3 ML VIAL (PYX) SUBCUT SCH ×4 (09:37→21:40)
[2019-08-05] MEDS: PANTOPRAZOLE SODIUM 40 MG VIAL IV SCH (09:59)
[2019-08-05] MEDS: DOCUSATE SODIUM 100 MG CAPSULE PO SCH (10:04)
[2019-08-05] MEDS: NORMAL SALINE 1000 ML 1,000 ML IV PRN ×2 (10:50→21:49)
[2019-08-05] MEDS ORDERED: DIPHENHYDRAMINE HCL 50 MG/ML VIAL IV ONE (11:30)
[2019-08-06 07:52] LABS: HEMATOCRIT 28.6 % (36.0-47.0); HEMOGLOBIN 9.5 g/dL (12.0-15.5); MEAN CORPUSCULAR HEMOGLOBIN 24.7 pg (27.0-33.4); MEAN CORPUSCULAR HGB CONC 33.2 g/dL (32.0-36.0); MEAN CORPUSCULAR VOLUME 75 fl (80-97); RED BLOOD COUNT 3.84 10^6/uL (3.72-5.28); RED CELL DISTRIBUTION WIDTH 18.5 % (11.5-14.0)
[2019-08-06 08:07] LABS: ANION GAP 7 (5-19); BLOOD UREA NITROGEN 14 mg/dL (7-20); CALCIUM 8.4 mg/dL (8.4-10.2); CARBON DIOXIDE 19 mmol/L (22-30); CHLORIDE 112 mmol/L (98-107); GLUCOSE 75 mg/dL (75-110); PHOSPHORUS 2.5 mg/dL (2.5-4.5); POTASSIUM 4.4 mmol/L (3.6-5.0)
[2019-08-06 08:36] LABS: WHITE BLOOD COUNT 1.8 10^3/uL (4.0-10.5)
[2019-08-06 08:39] LABS: PLATELET COUNT 70 10^3/uL (150-450)
[2019-08-06 08:42] LABS: ABSOLUTE LYMPHOCYTES# (MANUAL) 0.7 10^3/uL (0.5-4.7); ABSOLUTE MONOCYTES # (MANUAL) 0.4 10^3/uL (0.1-1.4); BASOPHILS % (MANUAL) 0 % (0-2); EOSINOPHILS % (MANUAL) 0 % (0-6); LYMPHOCYTES % (MANUAL) 34 % (13-45); MONOCYTES % (MANUAL) 22 % (3-13); SEGMENTED NEUTROPHILS % (MAN) 40 % (42-78); TOTAL CELLS COUNTED 50
[2019-08-06 08:47] LABS: ANISOCYTOSIS 2+; POIKILOCYTOSIS 1+; POLYCHROMASIA SLIGHT; SCHISTOCYTES SLIGHT
[2019-08-06 08:51] LABS: PLATELET COMMENT DECREASED
[2019-08-06] MEDS: INSULIN REG, HUMAN 100 UNIT/ML 3 ML VIAL (PYX) SUBCUT SCH ×2 (09:03→14:19)
[2019-08-06] MEDS: PANTOPRAZOLE SODIUM 40 MG VIAL IV SCH (09:04)
[2019-08-06] MEDS: DOCUSATE SODIUM 100 MG CAPSULE PO SCH (09:05)
--- NOTE | 2019-08-06 09:13 | PDOC DISCHARGE SUMMARY ---
Impression - Admit/DC Date/PCP Admission Date/Primary Care Provider: 08/05/19 07:42 DIGNA BLANCO MD Discharge Date: 08/06/19 - Discharge Diagnosis (1) Intractable nausea and vomiting Is this a current diagnosis for this admission?: Yes (2) Acute kidney injury Is this a current diagnosis for this admission?: Yes (3) Anemia Is this a current diagnosis for this admission?: Yes (4) Hyperglycemia Is this a current diagnosis for this admission?: Yes (5) Hyperkalemia Is this a current diagnosis for this admission?: Yes - Additional Information Resuscitation Status: Do Not Resuscitate Discharge Diet: As Tolerated Discharge Activity: Activity As Tolerated Referrals: DIGNA BLANCO MD [Primary Care Provider] - Follow up as needed Home Medications: Calcium Carbonate/Vitamin D3 [Calcium 600-Vit D3 400 Tablet] 1 tab PO BID 08/05/19 Furosemide [Lasix 20 mg Tablet] 20 mg PO BID 08/05/19 Losartan Potassium [Cozaar 50 mg Tablet] 50 mg PO DAILY 08/05/19 Melatonin 300 mcg PO QHS 08/05/19 Metoprolol Tartrate [Lopressor 50 mg Tablet] 50 mg PO DAILY 08/05/19 Omeprazole 20 mg PO QAM 08/05/19 Oxybutynin Chloride [Ditropan 5 mg Tablet] 5 mg PO BID 08/05/19 Spironolactone [Aldactone] 50 mg PO BID 08/05/19 History of Present Illiness History of Present Illness: VALENTINA PARIS is a 88 year old female with a history of liver cancer presents to the emergency department with nausea abdominal pain that started last night. Patient states pain is very sharp in nature and that she had a point with her primary care today but could not bear the pain. She denied any fevers or chills or other associated signs or symptoms. Patient states she does not take any medications and she does not want treated for anything related to her cancer. She does not want chemotherapy, radiation or surgery. Said no treatment prior to arrival all oral intake been aggravating factor Hospital Course Hospital Course: Patient is a very pleasant 88 old female with left history of liver cancer who presented to emerge department with history of abdominal pain with known liver cancer. Patient states her pain was sharp in nature she did have associated nausea and vomiting. She denies fever chills at the time. Patient was admitted placed on medical surgical floor hydrated overnight and given antiemetics. At this time patient's presentation return home. I will send in a prescription for patient for Zofran 4 mill grams p.o. every 4 hours as needed #15. Physical Exam Vital Signs: Temp Pulse Resp BP Pulse Ox 99.0 F 76 17 112/59 L 97 08/05/19 21:00 08/05/19 21:00 08/05/19 21:00 08/05/19 19:52 08/05/19 21:00 Intake & Output 08/05/19 08/06/19 08/07/19 06:59 06:59 06:59 Intake Total 1000 1900 Output Total 2100 Balance 1000 -200 Weight 53.977 kg 57.2 kg General appearance: PRESENT: no acute distress, well-developed, well-nourished Head exam: PRESENT: atraumatic, normocephalic Eye exam: PRESENT: conjunctiva pink, EOMI, PERRLA. ABSENT: scleral icterus Ear exam: PRESENT: normal external ear exam Mouth exam: PRESENT: moist, tongue midline Neck exam: ABSENT: carotid bruit, JVD, lymphadenopathy, thyromegaly Respiratory exam: PRESENT: clear to auscultation ira. ABSENT: rales, rhonchi, wheezes Cardiovascular exam: PRESENT: RRR. ABSENT: diastolic murmur, rubs, systolic murmur Pulses: PRESENT: normal dorsalis pedis pul Vascular exam: PRESENT: normal capillary refill GI/Abdominal exam: PRESENT: normal bowel sounds, soft. ABSENT: distended, guarding, mass, organolmegaly, rebound, tenderness Rectal exam: PRESENT: deferred Extremities exam: PRESENT: full ROM. ABSENT: calf tenderness, clubbing, pedal edema Neurological exam: PRESENT: alert, awake, oriented to person, oriented to place, oriented to time, oriented to situation, CN II-XII grossly intact. ABSENT: motor sensory deficit Psychiatric exam: PRESENT: appropriate affect, normal mood. ABSENT: homicidal ideation, suicidal ideation Skin exam: PRESENT: dry, intact, warm. ABSENT: cyanosis, rash Results Laboratory Results: WBC 1.8 10^3/uL (4.0-10.5) L 08/06/19 06:14 RBC 3.84 10^6/uL (3.72-5.28) 08/06/19 06:14 Hgb 9.5 g/dL (12.0-15.5) L 08/06/19 06:14 Hct 28.6 % (36.0-47.0) L 08/06/19 06:14 MCV 75 fl (80-97) L 08/06/19 06:14 MCH 24.7 pg (27.0-33.4) L 08/06/19 06:14 MCHC 33.2 g/dL (32.0-36.0) 08/06/19 06:14 RDW 18.5 % (11.5-14.0) H 08/06/19 06:14 Plt Count 70 10^3/uL (150-450) L 08/06/19 06:14 Lymph % (Auto) Not Reportable 08/06/19 06:14 [place] % (Auto) Not Reportable 08/06/19 06:14 Eos % (Auto) Not Reportable 08/06/19 06:14 Baso % (Auto) Not Reportable 08/06/19 06:14 Absolute Neuts (auto) Not Reportable 08/06/19 06:14 Absolute Lymphs (auto) Not Reportable 08/06/19 06:14 Absolute Monos (auto) Not Reportable 08/06/19 06:14 Absolute Eos (auto) Not Reportable 08/06/19 06:14 Absolute Basos (auto) Not Reportable 08/06/19 06:14 Total Counted 50 08/06/19 06:14 Seg Neutrophils % Not Reportable 08/06/19 06:14 Seg Neuts % (Manual) 40 % (42-78) L 08/06/19 06:14 Lymphocytes % (Manual) 34 % (13-45) 08/06/19 06:14 Atypical Lymphs % 4 % (0) 08/06/19 06:14 Monocytes % (Manual) 22 % (3-13) H 08/06/19 06:14 Eosinophils % (Manual) 0 % (0-6) 08/06/19 06:14 Basophils % (Manual) 0 % (0-2) 08/06/19 06:14 Abs Neuts (Manual) 0.7 10^3/uL (1.7-8.2) L 08/06/19 06:14 Abs Lymphs (Manual) 0.7 10^3/uL (0.5-4.7) 08/06/19 06:14 Abs Monocytes (Manual) 0.4 10^3/uL (0.1-1.4) 08/06/19 06:14 Absolute Eos (Manual) 0.0 10^3/uL (0.0-0.6) 08/06/19 06:14 Abs Basophils (Manual) 0.0 10^3/uL (0.0-0.2) 08/06/19 06:14 Platelet Comment DECREASED 08/06/19 06:14 Polychromasia SLIGHT 08/06/19 06:14 Poikilocytosis 1+ 08/06/19 06:14 Anisocytosis 2+ 08/06/19 06:14 Microcytosis 1+ 08/06/19 06:14 Tear Drop Cells SLIGHT 08/05/19 00:55 Ovalocytes 1+ 08/05/19 00:55 [place] Cells 2+ 08/05/19 00:55 Acanthocytes (Spur) 1+ 08/06/19 06:14 Schistocytes SLIGHT 08/06/19 06:14 Sodium 138.1 mmol/L (137-145) 08/06/19 06:14 Potassium 4.4 mmol/L (3.6-5.0) 08/06/19 06:14 Chloride 112 mmol/L (98-107) H 08/06/19 06:14 Carbon Dioxide 19 mmol/L (22-30) L 08/06/19 06:14 Anion Gap 7 (5-19) 08/06/19 06:14 BUN 14 mg/dL (7-20) 08/06/19 06:14 Creatinine 0.92 mg/dL (0.52-1.25) 08/06/19 06:14 Est GFR ( Amer) > 60 (>60) 08/06/19 06:14 Est GFR (MDRD) Non-Af 58 (>60) L 08/06/19 06:14 Glucose 75 mg/dL (75-110) 08/06/19 06:14 POC Glucose 80 mg/dL (70-110) 08/06/19 06:08 Hemoglobin A1c % 6.3 % (4.7-6.0) H 08/06/19 06:14 Calcium 8.4 mg/dL (8.4-10.2) 08/06/19 06:14 Phosphorus 2.5 mg/dL (2.5-4.5) 08/06/19 06:14 Magnesium 1.9 mg/dL (1.6-2.3) 08/06/19 06:14 Total Bilirubin 0.5 mg/dL (0.2-1.3) 08/04/19 23:50 Direct Bilirubin 0.2 mg/dL (0.0-0.4) 08/04/19 23:50 Neonat Total Bilirubin Not Reportable 08/04/19 23:50 Neonat Direct Bilirubin Not Reportable 08/04/19 23:50 Neonat Indirect Bili Not Reportable 08/04/19 23:50 AST 41 U/L (14-36) H 08/04/19 23:50 ALT 31 U/L (<35) 08/04/19 23:50 Alkaline Phosphatase 177 U/L (38-126) H 08/04/19 23:50 Total Protein 7.7 g/dL (6.3-8.2) 08/04/19 23:50 Albumin 4.3 g/dL (3.5-5.0) 08/04/19 23:50 Lipase 275.5 U/L (23-300) 08/04/19 23:50 Urine Color YELLOW 08/05/19 02:28 Urine Appearance CLEAR 08/05/19 02:28 Urine pH 5.0 (5.0-9.0) 08/05/19 02:28 Ur Specific [place] 1.011 08/05/19 02:28 Urine Protein NEGATIVE mg/dL (NEGATIVE) 08/05/19 02:28 Urine Glucose (UA) 50 mg/dL (NEGATIVE) H 08/05/19 02:28 Urine Ketones TRACE mg/dL (NEGATIVE) H 08/05/19 02:28 Urine Blood SMALL (NEGATIVE) H 08/05/19 02:28 Urine Nitrite NEGATIVE (NEGATIVE) 08/05/19 02:28 Urine Bilirubin NEGATIVE (NEGATIVE) 08/05/19 02:28 Urine Urobilinogen NEGATIVE mg/dL (<2.0) 08/05/19 02:28 Ur Leukocyte Esterase NEGATIVE (NEGATIVE) 08/05/19 02:28 Urine WBC (Auto) 2 /HPF 08/05/19 02:28 Urine RBC (Auto) 1 /HPF 08/05/19 02:28 U Hyaline Cast (Auto) 3 /LPF 08/05/19 02:28 Urine Bacteria (Auto) TRACE /HPF 08/05/19 02:28 Squamous Epi Cells Auto 2 /HPF 08/05/19 02:28 Urine Mucus (Auto) RARE /LPF 08/05/19 02:28 Urine Ascorbic Acid NEGATIVE (NEGATIVE) 08/05/19 02:28 Blood Type A POSITIVE 08/05/19 05:34 Antibody Screen NEGATIVE 08/05/19 05:34 Crossmatch See Detail 08/05/19 05:34 Impressions: Abdomen/Pelvis CT 08/05/19 01:58 IMPRESSION: 1. Cholelithiasis and gallbladder distention. If there is concern for acute cholecystitis right upper quadrant ultrasound or nuclear medicine biliary study may provide additional characterization. 2. Findings compatible with cirrhosis and moderate volume ascites. 3. Interval development of 2 indeterminate hypoenhancing lesions in the right hepatic lobe, the largest is in the posterior right hepatic lobe measuring 1.6 cm in greatest dimension. Differential considerations include dysplastic nodules, hepatocellular carcinoma, and metastatic lesions. Correlation with multiphase hepatic protocol CT/MRI of the abdomen recommended for more complete characterization. This exam was performed according to our departmental dose-optimization program, which includes automated exposure control, adjustment of the mA and/or kV according to patient size and/or use of iterative reconstruction technique. Abdomen Ultrasound 08/05/19 04:35 IMPRESSION: Cholelithiasis with gallbladder wall thickening and positive sonographic Simmons sign. Acute cholecystitis is not excluded. Plan Time Spent: Greater than 30 Minutes Stroke Is this a Stroke Patient?: No Acute Heart Failure - Is this a Heart Failure Patient?: No
[2019-08-06 13:50] VITALS: BP 108/81
[2019-08-10 13:18] LABS: PATH REVIEW PATHOLOGIST REVIEWED
== END 2019-08-06 15:43 | disposition home or self-care (01) ==
LOC: ER 00:21 → EH 07:42 → INTOOBSV 07:42 → 4N 09:12
PROVIDERS: ADMIT Internal Medicine; ATTEND Internal Medicine
DX: R11.2 Nausea with vomiting, unspecified (principal); N17.9 Acute kidney failure, unspecified; D64.9 Anemia, unspecified; R73.9 Hyperglycemia, unspecified; E87.5 Hyperkalemia; K74.60 Unspecified cirrhosis of liver; I10 Essential (primary) hypertension; K80.20 Calculus of gallbladder without cholecystitis without obstruction; C22.9 Malignant neoplasm of liver, not specified as primary or secondary; M19.90 Unspecified osteoarthritis, unspecified site; F10.21 Alcohol dependence, in remission; R10.13 Epigastric pain; Z90.710 Acquired absence of both cervix and uterus; Z66 Do not resuscitate
CPT/HCPCS: 99285; 96361; 96374; 96375; 86900; 86901; 36415 ×2; 36430; 86850; 82962 ×2; 83690; 83735; 84100; 85025 ×2; 80048; 80053; 81001; 83036; 86920; 76705; 74177; G0378 ×3; P9016; J1200; A9270 ×2; J3010; J2270; C9113 ×2; J3490 ×2; J2405; J7030; J2543